=== PATIENT | male | born 1965 | race Caucasian/White ===

== ENCOUNTER → 2017-09-17 10:47 | Outpatient (CLI) | payer MEDICARE, SELFPAY ==
--- NOTE | 2017-09-17 10:55 | DI.REPORT_ITS ---
SYMPTOM/DIAGNOSIS: LT HIP PAIN LEFT HIP AND PELVIS: Three views. Comparison CT scan is 05/21/12. There is again seen deformity of the left femoral head. These findings may reflect prior trauma or congenital changes. There is also stable deformity of the left iliac bone. There is joint space narrowing and mild subchondral sclerosis of the left hip. Periarticular spurring is also noted consistent with secondary degenerative changes. The right hip is well maintained as are the sacroiliac joints and symphysis pubis. The bones are normally mineralized and intact. IMPRESSION: Chronic changes involving the left hip and left iliac bone. 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
== END ==
PROVIDERS: PCP Family Medicine; Visit Provider Student in an Organized Health Care Education/Training Program
DX: M70.62 Trochanteric bursitis, left hip (principal); M25.552 Pain in left hip; M91.11 Juvenile osteochondrosis of head of femur [Legg-Calve-Perthes], right leg; M91.12 Juvenile osteochondrosis of head of femur [Legg-Calve-Perthes], left leg
CPT/HCPCS: 73502; 99214

== ENCOUNTER 2019-09-06 13:13 | Emergency (ER) | payer MEDICARE, SELFPAY ==
[2019-09-06 13:19] VITALS: BP 170/96; PULSE 76; RESP 16; TEMP 36.4; O2SAT 98
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
[2019-09-06] MEDS: Cephalexin 500 MG CAP PO (14:07)
[2019-09-06] MEDS: Lidocaine 1% Multi-Dose 50 ML VIAL IJ (14:07)
== END 2019-09-06 14:53 | disposition home or self-care (01) ==
PROVIDERS: Emergency Provider Registered Nurse Emergency; PCP Family Medicine
DX: S61.411A Laceration without foreign body of right hand, initial encounter (principal); W26.8XXA Contact with other sharp object(s), not elsewhere classified, initial encounter
CPT/HCPCS: 12001; 90471

== ENCOUNTER 2020-05-03 03:43 | Outpatient (CLI) | payer MEDICARE, SELFPAY ==
[2020-05-03 12:27] LABS: Abs Immature Grans 0.04 10^3/uL (0.0-0.06); Absolute Eosinophil Count 0.01 10^3/uL (0.0-0.7); Absolute Lymphocyte Count 1.99 10^3/uL (1.2-3.4); Absolute Monocyte Count 0.58 10^3/uL (0.1-0.8); Basophils % 0.5; Eosinophils % 0.1; HCT 46.1 % (40.0-50.0); HGB 15.9 g/dL (13.5-17.5); Immature Grans % 0.3; Lymphocytes % 15.5; MCH 30.6 pg (27.0-33.0); MCHC 34.5 % (32.0-36.0); MCV 88.8 fL (80-95); MPV 9.1 fL (8.0-11.0); Monocytes % 4.5; Neutrophils % 79.1; Nucleated RBC 0 %; Platelet Count 337 10^3/uL (130-400); RBC 5.19 10^6/uL (4.36-5.78); RDW 11.6 % (11.8-14.1); RDW-SD 37.4 fL; WBC 12.81 10^3/uL (4.4-10.8)
[2020-05-03 12:32] LABS: Absolute Basophil Count 0.06 10^3/uL (0.0-0.2); Absolute Neutrophil Count 10.13 10^3/uL (1.2-6.7)
[2020-05-03 14:37] LABS: ALT 61 U/L (16-63); AST 21 U/L (15-37); Albumin 4.4 g/dL (3.4-5.0); Alkaline Phosphatase 90 U/L (46-116); Anion Gap 12.6 mmol/L (3-11); BUN 17 mg/dL (7-18); Bilirubin, Total 0.8 mg/dL (0.2-1.0); CO2 25.4 mmol/L (21.0-32.0); CREATININE 0.8 mg/dL (0.70-1.30); Calcium 8.9 mg/dL (8.5-10.1); Calculated LDL 156 mg/dL (<100); Chloride 103 mmol/L (98-107); Cholesterol 222 mg/dL (<200); Glucose 119 mg/dL (74-106); HDL Cholesterol 52 mg/dL (40-60); Sodium 141 mmol/L (136-145); Triglyceride 73 mg/dL (<150)
[2020-05-03 14:53] LABS: C-Reactive Protein 0.32 mg/dL (0.0-0.3)
[2020-05-04 16:16] LABS: TSH (W/Ref FT4) 0.34 uIU/mL (0.36-3.74)
[2020-05-04 16:39] LABS: FREE T4 1.14 ng/dL (0.76-1.46)
== END 2020-05-03 03:44 | disposition home or self-care (01) ==
LOC: LBO 03:43
PROVIDERS: PCP Family Medicine; Visit Provider Family Medicine
DX: I10 Essential (primary) hypertension (principal); R59.1 Generalized enlarged lymph nodes; G90.513 Complex regional pain syndrome I of upper limb, bilateral; E66.9 Obesity, unspecified
CPT/HCPCS: 36415; 80053; 80061; 84439; 84443; 85025; 86140

== ENCOUNTER 2020-05-14 02:49 | Outpatient (CLI) | payer MEDICARE, SELFPAY ==
[2020-05-14 12:40] LABS: Abs Immature Grans 0.05 10^3/uL (0.0-0.06); Absolute Basophil Count 0.12 10^3/uL (0.0-0.2); Absolute Eosinophil Count 0.16 10^3/uL (0.0-0.7); Absolute Lymphocyte Count 3.33 10^3/uL (1.2-3.4); Absolute Monocyte Count 0.77 10^3/uL (0.1-0.8); Absolute Neutrophil Count 4.47 10^3/uL (1.2-6.7); Basophils % 1.3; Eosinophils % 1.8; HCT 48.6 % (40.0-50.0); HGB 16.4 g/dL (13.5-17.5); Immature Grans % 0.6; Lymphocytes % 37.4; MCH 30.8 pg (27.0-33.0); MCHC 33.7 % (32.0-36.0); MCV 91.2 fL (80-95); Monocytes % 8.7; Neutrophils % 50.2; Nucleated RBC 0 %; Platelet Count 298 10^3/uL (130-400); RBC 5.33 10^6/uL (4.36-5.78); RDW 12.1 % (11.8-14.1); RDW-SD 40.2 fL
[2020-05-14 13:54] LABS: TSH (W/Ref FT4) 1.25 uIU/mL (0.36-3.74)
[2020-05-17 10:05] LABS: C4 Complement 38 mg/dL (13-39)
== END 2020-05-14 02:50 | disposition home or self-care (01) ==
LOC: LBO 02:49
PROVIDERS: PCP Family Medicine; Visit Provider Family Medicine
DX: I10 Essential (primary) hypertension (principal); R59.0 Localized enlarged lymph nodes; R61 Generalized hyperhidrosis; T78.3XXA Angioneurotic edema, initial encounter
CPT/HCPCS: 36415; 84443; 85025; 86160

== ENCOUNTER → 2020-06-01 01:01 | Outpatient (CLI) | payer MEDICARE, SELFPAY ==
--- NOTE | 2020-06-01 | DI.CT_ITS ---
EXAM: CT NECK W CLINICAL HISTORY: ANGIOEDEMA OF NECK AND PHARYNX, ? CA, T78.3XXA TECHNIQUE: COMPARISON: No exams were available for comparison FINDINGS: CT examination cervical region was performed with intravenous infusion of 100 cc of Visipaque 320. Images obtained through the lung apices are unremarkable. A aortic arch and major vasculature appear s intact. The visualized facial and orbital structures and intracranial contents appear intact. The re is no cervical adenopathy. The salivary glands are unremarkable. There is apparent thickening of the love of the hypopharynx. The glottis is closed and is difficult to evaluate. There is asymmetry of the piriform sinuses with collapsed left piriform sinus. The fi ndings as described are nonspecific and could represent deglutition or edema in the patient with repo rted angioedema of the pharynx. However the possibility of mucosal lesion is not excluded on the bas is of this examination. Direct laryngoscopy suggested for further evaluation. IMPRESSION: Questionable findings suspicious for wall thickening of hypopharynx and abnormal laryngeal findings a s described above, additional evaluation with direct laryngoscopy suggested to exclude neoplastic pro cess.. RADIATION DOSE DELIVERED: 520.62mGy.cm Total DLP RADIATION OPTIMIZATION: All CT scans at this facility use at least one of these dose optimization te chniques: automated exposure control; mA and/or kV adjustment per patient size (includes targeted exa ms where dose is matched to clinical indication); or iterative reconstruction.
[2020-06-01 09:07] LABS: CREATININE 0.9 mg/dL (0.70-1.30)
[2020-06-01] MEDS: Normal Saline - Diluent 50 ML VIAL IV (10:37)
== END ==
PROVIDERS: PCP Family Medicine; Visit Provider Family Medicine
DX: T78.3XXA Angioneurotic edema, initial encounter (principal); J39.2 Other diseases of pharynx; J38.7 Other diseases of larynx
CPT/HCPCS: 70491; 82565

== ENCOUNTER 2022-05-03 03:29 | Outpatient (CLI) | payer MEDICARE, SELFPAY ==
[2022-05-03 07:49] LABS: ALT 29 U/L (16-63); AST 12 U/L (15-37); Alkaline Phosphatase 90 U/L (46-116); BUN 21 mg/dL (7-18); Bilirubin, Total 0.9 mg/dL (0.2-1.0); CREATININE 1.1 mg/dL (0.70-1.30); Calcium 9.3 mg/dL (8.5-10.1); Calculated LDL 123 mg/dL (<100); Chloride 103 mmol/L (98-107); Cholesterol 189 mg/dL (<200); Glucose 113 mg/dL (74-106); HDL Cholesterol 51 mg/dL (40-60); Potassium 3.7 mmol/L (3.5-5.1); Sodium 140 mmol/L (136-145); Total Protein 7.9 g/dL (6.4-8.2); Triglyceride 79 mg/dL (<150)
== END 2022-05-03 03:30 | disposition home or self-care (01) ==
LOC: LBO 03:29
PROVIDERS: PCP Family Medicine; Visit Provider Family Medicine
DX: I10 Essential (primary) hypertension (principal); R73.01 Impaired fasting glucose; R79.89 Other specified abnormal findings of blood chemistry
CPT/HCPCS: 36415; 80053; 80061

== ENCOUNTER → 2022-05-23 10:34 | Outpatient (BNVA) | payer MEDICARE, SELFPAY | PROVIDERS: PCP Family Medicine; Referring Provider Family Medicine; Visit Provider Surgery | DX: K40.90 Unilateral inguinal hernia, without obstruction or gangrene, not specified as recurrent (principal); G90.513 Complex regional pain syndrome I of upper limb, bilateral; I10 Essential (primary) hypertension | CPT/HCPCS: 99202; 99214 ==

== ENCOUNTER 2022-05-31 08:37 | Day surgery (SDC) | payer MEDICARE, SELFPAY ==
[2022-05-31] VITALS (8 sets, daily range): BP systolic 99–167; BP diastolic 55–96; PULSE 54–81; RESP 15–19; TEMP 36.1–36.7; O2SAT 94–100
--- NOTE | 2022-05-31 06:59 | ROE_ITS ---
Date of service: 05/31/22 Time of Service: 10:57 Operative Note Operative Note DATE OF PROCEDURE: 05/31/22 PRE-OP DIAGNOSIS: Right inguinal hernia POST-OP DIAGNOSIS: other (direct and indirect right inguinal hernia, skin tag) PROCEDURE: Right inguinal hernia repair with mesh Skin tag removal on pubis SURGEON: Sravanthi Rosales CAREER RESOURCE TECHNICIAN: Jenni Bravo ANESTHESIA TYPE: Local By Surgeon, General LMA/ETT and Primary Nerve Block Refer to Anesthesia Record ESTIMATED BLOOD LOSS: 3 PATHOLOGY: none sent COMPLICATIONS: None Patient was transported to: PACU Patient's condition: stable Implants: PERFIX: REF- [id number] 2026-11-09 Indications: Mr. Castrejon is a very pleasant 57-year-old gentleman with a right inguinal hernia which is causing him a lot of discomfort especially when standing for long periods of time.? He does have a left inguinal hernia repair x2.? He does not have a history of cardiac issues.? He has no chronic cough or shortness of breath.? We discussed hernia repair with mesh including a TAP block.? Risks, benefits and complications have been reviewed. Complications include but are not limited to bleeding, infection, injury to vas, vessels and nerves, injury to bowel, recurrence (3-5%), chronic pain and adverse reaction to medications. Questions were entertained and answered to their satisfaction and they wished to proceed. Findings: MOderate size indirect hernia and large direct hernia Small cord lipoma Procedure Description: After informed concent was obtained the patient was taken to the operating room and placed in a supine position. Monitors and SCDs were applied and a timeout was done. The patient's name, date of , procedure type, procedure site, allergies to medications, preoperative antibiotic, and DVT prophylaxis were all reviewed. Fire risk was assessed. Next anesthesia did a tap block on the right side under ultrasound guidance. Please see their separate dictation. Once anesthesia was done the abdomen was prepped and draped in a sterile surgical fashion. 0.25% Bupivocaine was injected into the dermis in the right lower quadrant. An incision was made with a 10 blade in the right lower quadrant. Dissection was done with cautery through the subcutaneous tissues and Thierry's fascia down to the external oblique fascia. The external ring was identified and the external oblique fascia was opened sharply through the external ring. The cut fascia was grasped with hemostats, the cord structures were identified and a Fina drain was placed around them. The ilioinguinal nerve was identified and cut. The cremasteric muscle was dissected away from the cord structures using both cautery and blunt dissection. A small lipoma was identified on the cord removed from the cord structures using blunt dissection. A moderate indirect hernia defect was identified and a L plug was placed into the indirect defect and secured with 2-0 proline. A flat piece of mesh was then attached to the lacunar ligament using a 2-0 Prolene double armed suture. The mesh was secured laterally and medially with a 2-0 Prolene, with a running suture. The tails of the mesh were wrapped around the cord structures effectively cinching down the internal ring. Once the mesh was secured the tissues were irrigated with some normal saline. No bleeding was identified. The external oblique fascia was reapproximated using 2-0 Vicryl running suture. The Thierry's fascia was reapproximated using interrupted 3-0 Vicryl. The dermis was reapproximated with a running 4-0 Monocryl. Local anesthetic was injected into the dermis at the site of the skin tag. The skin tag was then removed with a 10 blade. The area was cauterized. The skin was cleaned and dried and dermabond was applied to the inguinal incision. The patient was woken up and taken back to recovery in stable condition. There were no immediate complications. Sponge, instrument and needle counts were correct at the end of the case x2.
--- NOTE | 2022-05-31 07:01 | W.PM.DSUDISC ---
Date of service: 05/31/22 Time of Service: 12:36 Discharge Plan Disposition Patient Disposition: Home Condition: Stable Discharge Details Reason For Visit: [facility] Attending Provider: Sravanthi Rosales Primary Care Provider: Colby Butler Home Meds and New Rx's Prescriptions: Continued ascorbic acid (vitamin C) 500 mg capsule 500 mg PO DAILY apple cider vinegar 600 mg capsule 600 mg PO DAILY bupropion HCl 75 mg tablet 75 mg PO BID Qty: 60 0RF hydrochlorothiazide 12.5 mg tablet 12.5 mg PO DAILY Qty: 90 3RF multivitamin Tablet 1 tab PO DAILY oxycodone 10 mg tablet 10 mg PO BID MDD 20 mg Qty: 56 0RF oxycodone 10 mg tablet 10 mg PO TID MDD 30 mg PRN (Reason: pain) Qty: 84 0RF oxycodone 10 mg tablet 10 mg PO BID MDD 20 mg Qty: 56 0RF Claritin-D 24 Hour 1 EACH tablet extended release 24 hr 1 ea PO PRN sildenafil 50 mg tablet 50 mg PO DAILY PRN (Reason: sexual activity) Qty: 30 6RF Rx Instructions: administer 30 minutes to 4 hours before activity Discharge Instructions Instructions: Open Herniorrhaphy (DC) Additional Instructions: Activity at Home after surgery: 1. Make sure you walk outside at least 4 times per day 2. You should be able to climb a flight of stairs 3. No driving while in pain or taking pain medications 4. No strenuous activity or heavy lifting for 4 weeks (open surgery) Diet, Nutrition, & wound healin. Avoid alcohol until after you are recovered from your surgery 2. Make sure to eat plenty of lean protein (meat, fish, eggs, cottage cheese, beans) 3. Eat a variety of fruits and vegetables. Eat plenty of high fiber foods to avoid constipation. 4. Drink plenty of liquids to stay hydrated and avoid constipation Pain Medications: 1. Tylenol 650mg every 6 hours as needed and Ibuprofen 600 mg every 6 hours as needed. You may alternate between the 2 medications every 3 hours 2. If a narcotic has been prescribed take as directed only for breakthrough pain For Constipation: 1. Take Milk of Magnesia or MiraLax as needed for constipation Other: 1. You may shower daily. Do not scrub the incisions 2. Do not soak the incisions for 1 week 3. You may alternate ice and heat as needed for pain and swelling Wound Care: 1. Keep the incisions clean and dry Please call our office if you develop: 1. Fevers >101.5 2. Nausea or Vomiting 3. Worsening pain 4. Redness and thick discharge from the wounds If after hours please call the Hospital at and ask to speak to the on-call surgeon Referrals: Sravanthi Rosales MD [ [facility] STAFF PHYSICIAN] - 06/06/22 10:00 am Activity:: as above Shower/Bathe:: 24 hours Diet:: As Tolerated Discharge Orders Discharge Orders: Discharge Order (Routine); Ordered 05/31/22 Ordered By: Sravanthi Rosales
[2022-05-31] MEDS: Lactated Ringers 1,000 ML 80 ML IV (09:05)
[2022-05-31] MEDS: Celecoxib 200 MG CAP PO (09:09)
[2022-05-31] MEDS: Acetaminophen 500 MG TAB 1000 MG PO (09:09)
[2022-05-31] MEDS: Gabapentin 300 MG CAP 600 MG PO (09:09)
--- NOTE | 2022-05-31 09:09 | ANES.PREOP_ITS ---
General Info Date of Service Date Performed: 05/31/22 Height: 5 ft 9 in Weight: 5000 g Body Mass Index (BMI): 1.6 Surgical Procedure: Operation Date: 05/31/22 10:10 Proposed Procedure Side Surgeon p Herniorrhaphy Inguinal w/Mesh Right Sravanthi Rosales MD Meds Allergies and Home Medications Allergies Allergy/AdvReac Type Severity Reaction Status Date / Time losartan Allergy Severe angioedema Verified 05/30/22 10:07 gluten Allergy Intermediate Rash Verified 05/30/22 10:07 amitriptyline AdvReac Intermediate sedation Verified 05/30/22 10:07 lisinopril AdvReac Mild Cough Verified 05/30/22 10:07 ether AdvReac Nausea Verified 05/30/22 10:07 flu vaccine AdvReac Intermediate Other (See Uncoded 05/30/22 10:07 Comment) lactose intol AdvReac Intermediate vomiting, Uncoded 05/30/22 10:07 diarrhea Home Medication Medication Instructions Recorded loratadine-pseudoephedrine ER 10 1 ea PO PRN 03/27/17 mg-240 mg tablet,extended [id number] (Claritin-D 24 Hour) apple cider vinegar 600 mg capsule 600 mg PO DAILY 04/23/20 ascorbic acid (vitamin C) 500 mg 500 mg PO DAILY 04/23/20 capsule hydrochlorothiazide 12.5 mg tablet 12.5 mg PO DAILY #90 tabs 07/08/21 multivitamin 1 tab PO DAILY 09/30/21 sildenafil 50 mg tablet 50 mg PO DAILY PRN sexual activity 12/19/21 #30 tabs oxycodone 10 mg tablet 10 mg PO BID #56 tabs 03/16/22 oxycodone 10 mg tablet 10 mg PO BID #56 tabs 03/16/22 oxycodone 10 mg tablet 10 mg PO TID PRN pain #84 tabs 03/16/22 bupropion HCl 75 mg tablet 75 mg PO BID #60 tabs 05/16/22 Current Visit Medications: Current Medications Generic Name Dose Route Start Last Admin Trade Name Freq PRN Reason Stop Dose Admin Acetaminophen 1,000 mg 05/31/22 06:00 Acetaminophen 500 Mg Tab PO 05/31/22 23:59 PREOP THU Celecoxib 200 mg 05/31/22 06:00 Celecoxib 200 Mg Cap PO 05/31/22 23:59 PREOP THU Gabapentin 600 mg 05/31/22 06:00 Gabapentin 300 Mg Cap PO 05/31/22 23:59 PREOP THU Ringer's Solution 1,000 mls @ 80 mls/hr 05/31/22 06:00 IV 06/11/22 23:59 INFUSION THU Cefazolin Sodium/Dextrose 2 gm in 50 mls @ 100 mls/hr 05/31/22 06:00 Ancef Duplex IVPB 05/31/22 23:59 PREOP THU Ondansetron HCl 4 mg/ Sodium 52 mls @ 200 mls/hr 05/31/22 07:02 Chloride IVPB Q6H PRN PRN IV Miscellaneous Supplies 1 each 05/31/22 06:00 Iv Access IV 06/11/22 23:59 DIRECTED THU Sodium Chloride 0 ml 05/31/22 06:00 Normal Saline Flush 10 Ml Syr IV 06/11/22 23:59 PRN PRN Sodium Chloride 0 ml 05/31/22 06:00 Normal Saline 10 Ml Vial IJ 06/11/22 23:59 DIRECTED PRN Sterile Water 0 ml 05/31/22 06:00 Water,Injection,Sterile 10 Ml Vial IJ 06/11/22 23:59 DIRECTED PRN Tramadol HCl 50 mg 05/31/22 07:02 Tramadol 50 Mg Tab PO Q6H PRN PRN Pain PFSH Active Problems Active Problems: Problem Status Onset Code Right inguinal hernia K40.90 Borderline hyperlipidemia E78.5 Pigmented skin lesion L81.9 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 Impaired glucose tolerance R73.02 Erectile dysfunction N52.9 Essential hypertension I10 Abnormal findings on diagnostic imaging of lung 06/02/12 R91.8 Obstruction of urethra 12/13/12 N36.8 Unilateral inguinal hernia 12/13/10 K40.90 Complex regional pain syndrome affecting both upper arms G90.513 Vitamin D deficiency 04/09/14 E55.9 Trochanteric bursitis, left hip 09/17/17 M70.62 Sciatica 02/12/95 M54.30 Other chronic pain 03/15/07 G89.29 Obesity (BMI 30.0-34.9) 11/13/11 E66.9 Neoplasm of unspecified nature of bone, soft tissue, 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 states he had a rx to ether Surgical History Surgical History Biopsy, Soft Tissue (02/09/16) R lower lip Dr Rogers Colonoscopy - MAC (02/29/16) [facility] of inguinal [facility]nia ([facility]/01/12[facility] (open then laparoscopic) Hernia repair with Dr berman 07/03/2012 Total replacement of hip HIP reconstruction for diane-renay perthes. urethrotomy (07/03/12) 4 cm stricture, Dr Paz urethrotomy remote (02/12/78) ? Dr Forman, [facility] Tobacco Smoking/Tobacco Use Status: Former Tobacco Use Passive smoking exposure: No Alcohol Alcohol Intake: current Alcohol intake frequency: a few times a month Substance Use Substance use: Daily Substance use type: marijuana Vital Signs and Lab Results Vital Signs Most Recent Vital Signs in EMR: Most Recent Vital Signs Temp Pulse Resp BP Pulse Ox 36.1 C L 81 16 167/96 H 97 05/31/22 08:54 05/31/22 08:54 05/31/22 08:54 05/31/22 08:54 05/31/22 08:54 Lab Results Blood Type / Crossmatch: No Data to Display Complete Blood Count: No Data to Display Complete Metabolic Panel: Sodium 140 mmol/L (136-145) 05/03/22 07:17 Potassium 3.7 mmol/L (3.5-5.1) 05/03/22 07:17 Chloride 103 mmol/L (98-107) 05/03/22 07:17 Carbon Dioxide 30.0 mmol/L (21.0-32.0) 05/03/22 07:17 BUN 21 mg/dL (7-18) H 05/03/22 07:17 Creatinine 1.1 mg/dL (0.70-1.30) 05/03/22 07:17 Est GFR (CKD-EPI 2020) 78.30 (mL/min/1.73m2) 05/03/22 07:17 Calcium 9.3 mg/dL (8.5-10.1) 05/03/22 07:17 Albumin 4.0 g/dL (3.4-5.0) 05/03/22 07:17 Glucose 113 mg/dL (74-106) H 05/03/22 07:17 Liver Function Panel: Alanine Aminotransferase (ALT/SGPT) 29 U/L (16-63) 05/03/22 07: 17 Aspartate Amino Transf (AST/SGOT) 12 U/L (15-37) L 05/03/22 07: 17 Coagulation Panel: No Data to Display Cardiac Panel: No Data to Display Arterial Blood Gas: No Data to Display Venous Blood Gas: No Data to Display Pancreas Panel: No Data to Display Thyroid Panel: No Data to Display Infectious Disease: No Data to Display Blood Cultures: No Data to Display Toxicology Panel: No Data to Display Anesthesia Assessment and Plan Anesthesia History Personal History: Other Family History: No Family History of Anesthesia Complications Exercise Tolerance Exercise Tolerance: Metabolic Equivalents>4 Pertinent Negatives Pertinent Negatives: No Symptoms of GERD (med controlled) Cardiac & Pulmonary Exam Cardiac Exam: Normal S1/S2 Heart Sounds Pulmonary Exam: Wheezing Present (right upper wheeze. cleared with cough) Implantable Cardiac Device Does patient have a Pacemaker or an ICD?: No Airway Exam Known Difficult Airway: No Mallampati Class: 2 Mouth Opening: Normal (> 3cm) Thyromental Distance: Greater than 3 cm Neck Range of Motion: Full ROM Neck Circumference: Normal Teeth Condition: Normal Dentition ASA Classification ASA Score: ASA 2 Emergency Case?: No NPO Status NPO Status: NPO Clears >2 hours, Solids >8 hours Anesthesia Plan Resuscitation Status: Full Code Anesthesia Technique: General Anesthesia Airway Planned: LMA Pain Management: Surgeon and patient request nerve block (right tap. ) Monitors Used: Standard Monitors Preoperative Comments:: Pt agrees to tap block.
[2022-05-31] MEDS: ceFAZolin 2 GM/50 ML BAG IVPB (09:41)
--- NOTE | 2022-05-31 10:16 | W.ANESNERVE ---
Nerve Block Single Injection Procedure Date and Time Date Performed: 05/31/22 Procedure Start: 09:55 Location Where Procedure Performed Procedure Location: Operating Room Procedure Stop: 10:00 Reason Performed: Postoperative Analgesia Requesting Provider: Sravanthi Rosales Timeout Performed Timeout Performed: Yes Monitoring Used ECG, Blood Pressure, SpO2, ETCO2 and See EMR for corresponding vital signs Sterility Sterility: Hand Hygiene, Surgical Cap, Surgical Mask, Sterile Gloves and Sterile Drape/Sheet Sedation Given During Procedure Sedation Given (Indicate Dose Given): No Sedation given Patient Mental Status Patient Mental Status: Performed under general anesthesia Nerve Block 1st Nerve Block: Laterality: Right Block Type: TAP Unilateral (right ) Ultrasound Image Saved?: Yes Needle / Catheter Used: 100mm SonoPlex II Local Anesthetic Bolus (Indicate Dose Given): Injected in 3-5ml increments after negative blood aspiration and Bupivacaine 0.25% Dose:: 30 ml Additives (Indicate Dose Given): None Ultrasound: Sterile probe cover and gel used Nerve Stimulator: Not Used Paresthesia: None Procedure Tolerated: No Complications Procedure Outcome: Successful Performed By: Javier Rocha Other (not listed above): Eli de los santos
--- NOTE | 2022-05-31 10:58 | W.ANESPOSTOP ---
Postoperative Evaluation Vital Signs Most Recent Imported Vital Signs: Most Recent Vital Signs Temp Pulse Resp BP Pulse Ox 36.1 C L 81 16 167/96 H 97 05/31/22 08:54 05/31/22 08:54 05/31/22 08:54 05/31/22 08:54 05/31/22 08:54 Pain Score Most Recent Pain Score: Most Recent Pain Score Pain Level 6 05/31/22 08:54
--- NOTE | 2022-05-31 11:06 | W.PM.PROGNOT ---
Date of Service Date of service: 05/31/22 Time of Service: 09:00 Assessment and Plan Assessment and plan (1) Right inguinal hernia: Status: Acute Assessment and plan: late entry Risks, benefits and complications were reviwed again. Questions were answered. He understood the risks and complications and wished to proceed. No guarantees were given or implied. (2) Skin tag: Status: Acute Subjective Subjective Interval history since last seen: Patient seen in [facility] the day of surgery. He is nervous but otherwise doing well. Questions were answered regarding postoperative course. He also has a skin tag on his pubis which he would like tyo have it removed. This was added to his consent. Exam Resp Effort & Inspection: normal respiratory effort Auscultation: clear to auscultation bilaterally Cardio Rate: regular rate Rhythm: regular rhythm GI Other: skin tag on the right side of the pubis Objective Last Vital Signs Temp 97.0 F L 05/31/22 08:54 Pulse 81 05/31/22 08:54 Resp 16 05/31/22 08:54 BP 167/96 H 05/31/22 08:54 Pulse Ox 97 05/31/22 08:54 Time Spent with Patient Time Spent with Patient: <25 minutes Time was spent: counseling the patient
[2022-05-31] MEDS: Bupivacaine 0.25% Pres-Free 30 ML VIAL (11:07)
[2022-05-31] MEDS: HYDROmorphone 2 MG/ML SYR IVP (12:17)
--- NOTE | 2022-05-31 12:33 | W.ANESPOSTOP ---
Postoperative Evaluation Date, Time and Location Date Performed: 05/31/22 Time Performed: 12:33 Patient Location: Day Surgery Unit Vital Signs Most Recent Imported Vital Signs: Most Recent Vital Signs Temp Pulse Resp BP Pulse Ox 36.7 C 59 L 16 136/84 100 05/31/22 12:08 05/31/22 12:08 05/31/22 12:08 05/31/22 12:08 05/31/22 12:08 Pain Score Most Recent Pain Score: Most Recent Pain Score Pain Level 6 05/31/22 12:08 Assessment Mental Status: Awake (Alert & Oriented to Patient Baseline) Airway and Respiratory Function: Patent airway with normal (patient baseline) respiratory exam Cardiovascular Function: Hemodynamically Stable Hydration Status: Adequately Hydrated Nausea & Vomiting: No Nausea or Vomiting Pain: Pain is Moderate or Severe Postoperative Pain Management: Pain being addressed with medication (Currently 4/10) Peripheral Nerve Block: Regional nerve block not resolved at time of post operative discharge
--- NOTE | 2022-05-31 12:37 | W.PM.PROGNOT ---
Date of Service Date of service: 05/31/22 Time of Service: 12:37 Assessment and Plan Assessment and plan (1) S/P inguinal hernia repair using synthetic patch: Assessment and plan: Delgado is a few hours out from his hernia surgery. He is doing well. He has some discomfort. Discussed signs and symptoms of infection Subjective Subjective Interval history since last seen: Delgado is doing well. I am seing it postoperatively in SDS. He is having some pain. Will give him Oxycodon 10 mg which is what he takes at home for chronic pain. Otherwise he feels well Exam GI Inspection: incision (c/d/i) Palpation: tender (appropriately tender around the incision) Objective Last Vital Signs Temp 98.1 F 05/31/22 12:08 Pulse 59 L 05/31/22 12:08 Resp 16 05/31/22 12:08 BP 136/84 05/31/22 12:08 Pulse Ox 100 05/31/22 12:08 Time Spent with Patient Time Spent with Patient: <25 minutes Time was spent: counseling the patient
[2022-05-31] MEDS: oxyCODONE 5 MG TAB 10 MG PO (12:45)
== END 2022-05-31 13:27 | disposition home or self-care (01) ==
PROVIDERS: PCP Family Medicine; Visit Provider Surgery
DX: K40.90 Unilateral inguinal hernia, without obstruction or gangrene, not specified as recurrent (principal); D17.6 Benign lipomatous neoplasm of spermatic cord
CPT/HCPCS: 49505; 55520; 76942; C1781; J0690; J1100; J1170; J1885; J2405; J2704

== ENCOUNTER → 2022-06-06 09:57 | Outpatient (BNVA) | payer MEDICARE, SELFPAY | PROVIDERS: PCP Family Medicine; Referring Provider Family Medicine; Visit Provider Surgery | DX: Z48.817 Encounter for surgical aftercare following surgery on the skin and subcutaneous tissue (principal) ==

== ENCOUNTER → 2022-06-14 12:56 | Outpatient (BNVA) | payer MEDICARE, SELFPAY | PROVIDERS: PCP Family Medicine; Referring Provider Family Medicine; Visit Provider Surgery | DX: Z48.817 Encounter for surgical aftercare following surgery on the skin and subcutaneous tissue (principal); G89.18 Other acute postprocedural pain ==

== ENCOUNTER 2022-07-13 03:34 | Outpatient (CLI) | payer MEDICARE, SELFPAY ==
--- NOTE | 2022-07-13 08:30 | DI.RAD_ITS ---
Exam(s) XR SHOULDER RT COMPLETE 2+V EXAM: XR SHOULDER RT COMPLETE 2+V CLINICAL HISTORY: Likely arthritis,RT SHOULDER PAIN, M25.511. TECHNIQUE: 2D digital imaging was performed. COMPARISON: No exams were available for comparison FINDINGS: Five views No evidence acute fracture or dislocation or joint space narrowing. No calcifications in the subacro mial space. There is a 3 x 2 millimeter calcific density immediately subjacent to the inferior aspec t of the osseous glenoid. There is not have appearance of an obvious bony [place] lesion. Other con sideration would be for loose body in the inferior recess at this level. There are mild degenerative changes in the AC joint. Intra-articular calcifications seen in the supe rior aspect of the AC joint. No ominous osseous lesions. Bone density normal. IMPRESSION: As above. DATA REPOSITORY: RADIATION DOSE DELIVERED:
== END 2022-07-13 03:54 ==
LOC: DI 03:35
PROVIDERS: PCP Family Medicine; Visit Provider Family Medicine
DX: M19.012 Primary osteoarthritis, left shoulder
CPT/HCPCS: 73030

== ENCOUNTER → 2022-11-14 08:58 | Outpatient (BNVA) | payer MEDICARE, SELFPAY | PROVIDERS: PCP Family Medicine; Referring Provider Family Medicine; Visit Provider Student in an Organized Health Care Education/Training Program | DX: M75.101 Unspecified rotator cuff tear or rupture of right shoulder, not specified as traumatic (principal); G90.513 Complex regional pain syndrome I of upper limb, bilateral | CPT/HCPCS: 99203; 99213 ==

== ENCOUNTER → 2022-12-05 00:49 | Outpatient (CLI) | payer MEDICARE, SELFPAY ==
--- NOTE | 2022-12-05 07:00 | DI.MRI_ITS ---
Exam(s) MR UPPER JOINT RT WO EXAM: MR UPPER JOINT RT WO CLINICAL HISTORY: PAIN,RT ROTATOR CUFF TEAR,M75.101. TECHNIQUE: Multiplanar multisequence MRI was performed. COMPARISON: 13 July 2022 plain film FINDINGS: BONES: There is no fracture or contusion pattern. JOINTS:The acromioclavicular joint shows some inferior spurring and a small amount of fluid. The gle nohumeral joint shows a moderate amount of fluid. Fluid ext extends into subacromial space and subcoracoid bursa. Fluid extends along the infraspinatu s tendon. TENDONS: Supraspinatus: On full-thickness tear with retraction to the level of the AC joint. Infraspinatus: Fluid extends along the infraspinatus tendon. No focal tear is visible. Subscapularis: Thickening but no visible tear. Teres [place]: Unremarkable. Biceps and [place]: Unremarkable. MUSCLES: Mild supraspinatus muscle atrophy. GLENOID LABRUM: Question of small tear at anterosuperior corner versus labral recess with fluid. SOFT TISSUES: Unremarkable. IMPRESSION: Full-thickness tear of with retraction of the supraspinatus tendon. Joint effusion. Subscapularis tendinosis. Question small tear anterior superior glenoid labrum versus recess. DATA REPOSITORY:
== END ==
PROVIDERS: PCP Family Medicine; Visit Provider Student in an Organized Health Care Education/Training Program
DX: M75.121 Complete rotator cuff tear or rupture of right shoulder, not specified as traumatic (principal)
CPT/HCPCS: 73221

== ENCOUNTER → 2022-12-12 09:35 | Outpatient (BNVA) | payer MEDICARE, SELFPAY | PROVIDERS: PCP Family Medicine; Referring Provider Family Medicine; Visit Provider Student in an Organized Health Care Education/Training Program | DX: M75.101 Unspecified rotator cuff tear or rupture of right shoulder, not specified as traumatic (principal); S43.431A Superior glenoid labrum lesion of right shoulder, initial encounter; X58.XXXA Exposure to other specified factors, initial encounter | CPT/HCPCS: 99214 ==

== ENCOUNTER 2022-12-29 09:41 | Day surgery (SDC) | payer MEDICARE, SELFPAY ==
[2022-12-29] VITALS (11 sets, daily range): BP systolic 134–164; BP diastolic 61–94; PULSE 63–87; RESP 9–23; TEMP 35.8–37; O2SAT 95–100; BMI 29.9
--- NOTE | 2022-12-29 07:29 | W.PM.DSUDISC ---
Date of service: 12/29/22 Time of Service: 16:00 Discharge Plan Disposition Patient Disposition: Home Condition: Stable Discharge Details Attending Provider: Rd Torre Primary Care Provider: Colby Butler Home Meds and New Rx's Prescriptions: New naproxen 250 mg tablet 250 - 500 mg PO BID PRNQty: 40 0RF Rx Instructions: take with a meal aspirin 81 mg tablet,delayed release (DR/EC) 81 mg PO DAILY 7 Days Qty: 7 0RF Continued ascorbic acid (vitamin C) 500 mg capsule 500 mg PO DAILY apple cider vinegar 600 mg capsule 600 mg PO DAILY cholecalciferol (vitamin D3) 10 mcg (400 unit) capsule 10 mcg PO .Every other day hydrochlorothiazide 12.5 mg tablet 12.5 mg PO DAILY Qty: 90 3RF oxycodone 10 mg tablet 10 mg PO TID MDD 30 mg Qty: 84 0RF oxycodone 10 mg tablet 10 mg PO TID MDD 30 mg Qty: 84 0RF oxycodone 10 mg tablet 10 mg PO TID MDD 30 mg PRN (Reason: pain) Qty: 84 0RF oxycodone 5 mg tablet 5 mg PO BID MDD 40 mg PRN (Reason: pain) Qty: 6 0RF Rx Instructions: Temporary post-op pain management in addition to his normal supply of 10 mg oxycodone multivitamin Tablet 1 tab PO DAILY bupropion HCl 150 mg tablet sustained-release 12 hr 150 mg PO BID Qty: 180 1RF cyanocobalamin (vitamin B-12) 1,000 mcg capsule 1,000 mcg PO DAILY Claritin-D 24 Hour 1 EACH tablet extended release 24 hr 1 ea PO PRN sildenafil 50 mg tablet 50 mg PO DAILY PRN (Reason: sexual activity) Qty: 30 6RF Rx Instructions: administer 30 minutes to 4 hours before activity lidocaine 5 % adhesive patch,medicated 1 patch topical DAILY Qty: 15 0RF Rx Instructions: leave on most painful area for up to 12 hrs Discharge Instructions Additional Instructions: Surgery: Right shoulder arthroscopy with allograft superior capsular reconstruction, rotator cuff repair, biceps tenodesis, extensive debridement, and subacromial decompression. Activity: For 6 weeks, you should keep your arm at your side in a neutral position at all times except for physical therapy. Do not try to lift or raise your arm using your own muscles. You should use the sling whenever you are out of the house. You may have to adjust the abduction pillow or remove it for comfort. At home it is best to remove the sling and rest the arm on a pillow at your side or support the operative side with your other hand. You may allow the arm to dangle at your side. A physical therapy prescription will be sent electronically to begin in about 3 weeks. CONSERVATIVE protocol. Prescriptions: Aspirin 81 mg take 1 daily to prevent a blood clot for 7 days Naproxen 250 mg take 1-2 every 12 hours with a meal as needed for moderate pain Oxycodone 5 mg take 1-2 every 4-6 hours as needed for severe pain You may use [id number] Tylenol (acetaminophen) as needed for mild pain. These pain medications may be taken all at once or in different combinations as needed. Also, recommend Colace (docusate) as a stool softener as surgery and pain medicine cause constipation. You may try [id number] diphenhydramine (Benadryl) 25-50 mg nightly as a sleep aid Dressings: Remove shoulder bandage after 3 days. Leave the sticky Steri-Strips in place until they fall off or remove them after you shower. Cover the incisions with Band-Aids or leave them open to air. You may shower after 5 days. Follow-up: 10-[address] Torre You may take off the leg compression stockings this evening at home. You may also leave them on a few days longer if you have a history of leg swelling or edema. Let us know right away if you develop any redness, drainage, fevers, chest pain, or trouble breathing. Do not drink alcohol or drive for at least 24 hours after anesthesia. Please call the office during business hours with any questions or concerns. Discharge Orders Discharge Orders: Discharge Order (Routine); Ordered 12/29/22 Ordered By: Rd Torre DS: Diagnosis Discharge Diagnosis (1) Rotator cuff tear, right: Status: Acute (2) SLAP lesion of right shoulder: Status: Acute (3) Chondromalacia of right shoulder: Status: Acute
--- NOTE | 2022-12-29 07:31 | ROE_ITS ---
Date of service: 12/29/22 Time of Service: 13:30 Operative Note Operative Note DATE OF PROCEDURE: 12/29/22 PRE-OP DIAGNOSIS: Right: 1. Rotator cuff tear 2. SLAP tear 3. Glenohumeral chondromalacia 4. Bursitis POST-OP DIAGNOSIS: same PROCEDURE: Right: 1. Rotator cuff repair, CPT# 46518. This involved repair of the infraspinatus teres minor to the posterior aspect of the reconstruction and greater tuberosity 2. Arthroscopic biceps tenodesis, CPT# 88421. This involved arthroscopically suturing and reattaching the long head of the biceps tendon to the proximal humerus at the superior margin of the bicipital groove with a screw at the correct tension. 3. Extensive debridement, CPT# 68335. This involved using arthroscopic hand instruments, power instruments, and radiofrequency instruments to release the long head of the biceps tendon and debride areas of labral tearing, synovitis, and chondromalacia about the central humeral head working within the glenohumeral joint anteriorly, superiorly and posteriorly. 4. Subacromial decompression with partial acromioplasty, CPT# 30858. This involved using arthroscopic power instruments and a radiofrequency wand to complete a bursectomy and smooth the undersurface of the acromion. 5. Arthroscopic superior capsular reconstruction, CPT #69679: This involved dermal allograft reconstruction of deficient superior capsule to maintain glenohumeral stability and prevent superior humeral migration. The pediatric physician assistant was medically required in order to help assist in techniques above, which require positioning the arm, holding the arthroscope, and manipulating multiple instruments and sutures at the same time. This cannot be done without the help of an experienced pediatric physician assistant. SURGEON: Rd Torre CRIMINALIST TECHNICIAN: Yuliana De Luna ANESTHESIA TYPE: General LMA/ETT and Primary Nerve Block Refer to Anesthesia Record ESTIMATED BLOOD LOSS: 10 PATHOLOGY: none sent COMPLICATIONS: None Patient was transported to: PACU Patient's condition: stable Implants: Arthrex: 4.75mm SwiveLocks x 4, 3.9mm Corkscrew anchors x 2 Indications: The patient was diagnosed with the above conditions and appropriately indicated for surgical intervention. Please see complete medical record for details. Findings: Exam under anesthesia: Full range of motion, no instability Glenohumeral joint: Significant synovitis, obvious full-thickness retracted atrophied rotator cuff tear. Intact subscapularis. Intact long head biceps tendon, but significant SLAP tear disruption biceps tendon anchor. Moderate global humeral head and to a lesser extent glenoid chondromalacia. Subacromial space: Completely deficient supraspinatus and majority infraspinatus. Retracted atrophied rotator cuff past the level of the glenoid. Significant bursitis. Irregular soft bone across the exposed greater tuberosity margin. Tear involving the transverse humeral ligament anteriorly at the biceps. Relatively intact teres and possibly some infraspinatus most posteriorly. Procedure Description: In the operating room, general anesthesia was induced. Bilateral shoulders were examined. The patient was positioned in the beachchair position. All bony prominences were well-padded. Preoperative antibiotics were administered. The shoulder was prepped and draped in the usual sterile fashion. The correct patient, procedure, and side of the procedure were all verified prior to incision. Starting through the posterior portal a standard complete diagnostic arthroscopy was performed of the glenohumeral joint including inspection of the long head of the biceps, anterior and superior labrum, subscapularis tendon, supraspinatus and infraspinatus tendons, and axillary recess. The glenoid and humeral head cartilage as well as the posterior labrum were inspected from a superior anterior lateral viewing portal. Significant findings and interventions noted above. Starting through the posterior portal, the arthroscope was directed into the subacromial space. A lateral 50 yard line lateral portal was created. A combination of power instruments and a radiofrequency ablator were used to debride bursitis anteriorly, posteriorly, and laterally as well as expose and smooth bone spurring on the undersurface of the acromion. The coracoacromial ligament was minimally released. The bursectomy was completed viewing laterally and working from posteriorly and the rotator cuff was thoroughly inspected with findings noted above. Working cannulas were established Lynn's anterior and posterior superior lateral and Lynn laterally. An all-arthroscopic suprapectoral biceps tenodesis was performed through an anterior portal using a Loop N Tack method with a SutureTape FiberLink cinched around and through the tendon. The biceps was tenotomized from the labrum and withdrawn out the superior anterolateral cannula for later repair with the medial row reconstruction suture anchor. The deficient rotator cuff was tested and had no excursion mobility or tissue quality for repair medial to lateral. The far most posterior tissue would probably be able to be used to reapposed with a graft and posterior margin greater tuberosity. Percutaneous portals no visor and anterior were used with spinal needles dilators to localize trajectory for the glenoid reconstruction anchors. Superior labrum and glenoid bone prepared to optimize tissue healing. Spear corkscrew guide used anteriorly at the base of the coracoid and then posterior superior glenoid margin placing 2 knotless 3.9 mm corkscrew anchors. The anterior medial row SwiveLock was then placed with the biceps tenodesis anchor with additional suture around and through the biceps tendon for additional fixation and soft tissue anteriorly given the large area of deficiency. The suture anchor was preloaded with FiberTape's. A posterior medial row anchor SwiveLock placed loaded with FiberTape's as well. SCR measuring guide was used to measure dimensions of the defect and on the back table the dermal allograft was prepared. The Lynn cannula was removed and a 12 x 4 passport was inserted. The FiberTape's were brought out laterally passed through the lateral margin of the reconstruction tissue. The knotless glenoid repair sutures were then brought out shuttled horizontal mattress through the glenoid margin of the reconstruction and then shuttled back through their respective anchor eyelet knotless mechanisms. The graft was then delivered into the joint using the back grasper. It deployed nicely and reapposed to the glenoid margin. Glenoid sutures were tensioned. Anterior FiberTape's were tensioned bringing the graft down. The posterior anchor was a knotless SwiveLock and the 5 sutures pulled through the graft. The knotless repair sutures were removed. A scorpion was used to shuttle a FiberLink through an appropriate location over the posterior medial row suture anchor and then used to shuttle the FiberTape's back through the reconstruction graft. These were tensioned down. There is nice fit of the graft through the rotator cuff defect. The arm is rotated a FiberTape from anterior and posterior was then secured to an anterior lateral row SwiveLock anchor, this was repeated for posterior lateral row SwiveLock anchor. Reconstruction was complete with good fixation tissue apposition across the greater tuberosity and at the glenoid. Demonstrated good trampoline effect and the arm could not be delivered up into the acromion anymore. Through the posterior superior lateral portal knotless suture passer was then used to place a [id number] repair suture between the remnant infraspinatus and teres in the central posterior aspect of the reconstruction tissue and secured using SMC arthroscopic knot. Similar technique was then done anteriorly securing the biceps tendon stump to the anterior central portion of the reconstruction for additional tissue given the deficient transverse humeral ligament area. The shoulder was drained of arthroscopic fluid. All portal sites were copiously irrigated. These incisions were closed using 3-0 Monocryl in a buried fashion and then covered with Mastisol, Steri-Strips, Xeroform, dry gauze, and ABDs. The dressings were covered and secured with Medipore tape. The operative extremity was placed into a sling for immobilization. The patient awoke from anesthesia without complication and was transferred to the recovery room in a stable condition.
--- NOTE | 2022-12-29 08:17 | ANES.PREOP_ITS ---
General Info Date of Service Date Performed: 12/29/22 Height: 5 ft 9 in Weight: 92.079 kg Body Mass Index (BMI): 29.9 Surgical Procedure: Operation Date: 12/29/22 12:10 Proposed Procedure Side Surgeon p Shoulder Rotator Cuff Arthroscopic w/Extensive Debridement, Biceps Tenodesis, Subacromial Decompression, Allograft Superior Capsular Reconstruction Right Renato kruse Digna Torre MD Meds Allergies and Home Medications Allergies Allergy/AdvReac Type Severity Reaction Status Date / Time losartan Allergy Severe angioedema Verified 12/29/22 09:56 tramadol Allergy Severe rash Verified 12/29/22 09:57 gluten Allergy Intermediate Rash Verified 12/29/22 09:56 amitriptyline AdvReac Intermediate sedation Verified 12/29/22 09:56 lisinopril AdvReac Mild Cough Verified 12/29/22 09:56 ether AdvReac Nausea Verified 12/29/22 09:56 flu vaccine AdvReac Intermediate Other (See Uncoded 12/29/22 09:56 Comment) lactose intol AdvReac Intermediate vomiting, Uncoded 12/29/22 09:56 diarrhea Home Medication Medication Instructions Recorded loratadine-pseudoephedrine ER 10 1 ea PO PRN 03/27/17 mg-240 mg tablet,extended [id number] (Claritin-D 24 Hour) apple cider vinegar 600 mg capsule 600 mg PO DAILY 04/23/20 ascorbic acid (vitamin C) 500 mg 500 mg PO DAILY 04/23/20 capsule multivitamin 1 tab PO DAILY 09/30/21 sildenafil 50 mg tablet 50 mg PO DAILY PRN sexual activity 12/19/21 #30 tabs cholecalciferol (vitamin D3) 10 10 mcg PO .Every other day 06/13/22 mcg (400 unit) capsule hydrochlorothiazide 12.5 mg tablet 12.5 mg PO DAILY #90 tabs 06/19/22 bupropion HCl 150 mg tablet,12 hr 150 mg PO BID #180 tabs 09/29/22 sustained-release lidocaine 5 % topical patch 1 patch topical DAILY #15 ea 10/17/22 cyanocobalamin (vitamin B-12) 1,000 mcg PO DAILY 12/12/22 1,000 mcg capsule oxycodone 10 mg tablet 10 mg PO TID #84 tabs 12/19/22 oxycodone 10 mg tablet 10 mg PO TID #84 tabs 12/19/22 oxycodone 10 mg tablet 10 mg PO TID PRN pain #84 tabs 12/19/22 oxycodone 5 mg tablet 5 mg PO BID PRN pain #6 tabs 12/19/22 Current Visit Medications: Current Medications Generic Name Dose Route Start Last Admin Trade Name Freq PRN Reason Stop Dose Admin Ringer's Solution 1,000 mls @ 30 mls/hr 12/29/22 06:00 IV 01/27/23 23:59 INFUSION THU Cefazolin Sodium/Dextrose 2 gm in 50 mls @ 100 mls/hr 12/29/22 06:00 Ancef Duplex IVPB 01/27/23 23:59 PREOP THU IV Miscellaneous Supplies 1 each 12/29/22 06:00 Iv Access IV 01/27/23 23:59 DIRECTED THU Oxycodone HCl 0 mg 12/29/22 07:28 Oxycodone 5 Mg Tab PO 01/28/23 07:27 Q3H PRN PRN Pain Sodium Chloride 0 ml 12/29/22 06:00 Normal Saline Flush 10 Ml Syr IV 01/27/23 23:59 PRN PRN Sodium Chloride 0 ml 12/29/22 06:00 Normal Saline 10 Ml Vial IJ 01/27/23 23:59 DIRECTED PRN Sterile Water 0 ml 12/29/22 06:00 Water,Injection,Sterile 10 Ml Vial IJ 01/27/23 23:59 DIRECTED PRN PFSH Active Problems Active Problems: Problem Status Onset Code SLAP lesion of right shoulder S43.431A Rotator cuff tear, right M75.101 Seborrheic keratoses 10/02/22 L82.1 Depression F32.A Postoperative abdominal pain R10.9, G89.18 Skin tag L91.8 Borderline hyperlipidemia E78.5 Pigmented skin lesion L81.9 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 Impaired glucose tolerance R73.02 Erectile dysfunction N52.9 Essential hypertension I10 Abnormal findings on diagnostic imaging of lung 06/02/12 R91.8 Obstruction of urethra 12/13/12 N36.8 Unilateral inguinal hernia 12/13/10 K40.90 Complex regional pain syndrome affecting both upper arms G90.513 Vitamin D deficiency 04/09/14 E55.9 Trochanteric bursitis, left hip 09/17/17 M70.62 Sciatica 02/12/95 M54.30 Other chronic pain 03/15/07 G89.29 Obesity (BMI 30.0-34.9) 11/13/11 E66.9 Neoplasm of unspecified nature of bone, soft tissue, 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 states he had a rx to ether Surgical History Surgical History S/P cryotherapy of skin lesion (10/02/22) Location forehead, right helix, left pentecostalism, vertex scalp (Total #7) - Dr Les Nicole MD @ [facility] [place] S/P right inguinal hernia repair (~05/31/22) S/P inguinal hernia repair using synthetic patch (~05/31/22) urethrotomy remote (02/12/78) ? Dr Forman, [facility] urethrotomy (07/03/12) 4 cm stricture, Dr Paz Total replacement of hip HIP reconstruction for diane-renay perthes. Repair of inguinal hernia (05/01/12) DR KEVIN- [facility] repair x2 (open then laparoscopic) Hernia repair with Dr kevin 07/03/2012 Colonoscopy - MAC (02/29/16) Biopsy, Soft Tissue (02/09/16) R lower lip Dr Rogers Tobacco Smoking/Tobacco Use Status: Former Tobacco Use Passive smoking exposure: No Alcohol Alcohol Intake: current Alcohol intake frequency: a few times a month Substance Use Substance use: Daily Substance use type: marijuana Vital Signs and Lab Results Vital Signs Most Recent Vital Signs in EMR: Temp Pulse Resp BP Pulse Ox 36.6 C 87 16 164/94 H 97 12/29/22 10:07 12/29/22 10:07 12/29/22 10:07 12/29/22 10:07 12/29/22 10:07 Lab Results Blood Type / Crossmatch: No Data to Display Complete Blood Count: No Data to Display Complete Metabolic Panel: No Data to Display Liver Function Panel: No Data to Display Coagulation Panel: No Data to Display Cardiac Panel: No Data to Display Arterial Blood Gas: No Data to Display Venous Blood Gas: No Data to Display Pancreas Panel: No Data to Display Thyroid Panel: No Data to Display Infectious Disease: No Data to Display Blood Cultures: No Data to Display Toxicology Panel: No Data to Display Anesthesia Assessment and Plan Anesthesia History Personal History: Other Family History: No Family History of Anesthesia Complications Exercise Tolerance Exercise Tolerance: Metabolic Equivalents>4 Cardiac & Pulmonary Exam Cardiac Exam: Normal S1/S2 Heart Sounds Pulmonary Exam: Clear Bilateral Breath Sounds Implantable Cardiac Device Does patient have a Pacemaker or an ICD?: No Airway Exam Known Difficult Airway: No Mallampati Class: 2 Mouth Opening: Normal (> 3cm) Thyromental Distance: Greater than 3 cm Neck Range of Motion: Full ROM Neck Circumference: Normal Teeth Condition: Normal Dentition ASA Classification ASA Score: ASA 2 Emergency Case?: No NPO Status NPO Status: NPO Clears >2 hours, Solids >8 hours Anesthesia Plan Resuscitation Status: Full Code Anesthesia Technique: General Anesthesia Airway Planned: Endotracheal Tube Pain Management: Surgeon and patient request nerve block (Rescue brachial plexus block. ) Monitors Used: Standard Monitors Preoperative Comments:: 57 yo male for shoulder scope. Sig PMHx: HTN (HCTZ), depression/adjustment disorder (bupropion), sciatica, neck/back pain. former smoker, occ EtOH, daily cannabis. ? CRPS/chronic pain (30 mg oxycodone/day) Previous Anes: - hernia, LMA 5, no issues. - colo, prop, natural airway, no issues. Does not want nerve block. Had a nerve block at [facility] a long time ago in which they told him that he because of his nerve block. In reviewing [facility] I can't find a record of this. We discussed his pain after the surgery and he agrees that if he is very uncomfortable he would be willing to have a nerve block as a rescue.
[2022-12-29] MEDS: Lactated Ringers 1,000 ML 30 ML IV (10:39)
[2022-12-29] MEDS: ceFAZolin 2 GM/50 ML BAG IVPB (12:52)
[2022-12-29] MEDS: Bupivacaine 0.25% Pres-Free 30 ML VIAL (15:00)
[2022-12-29] MEDS: EPINEPHrine 10 MG/10 ML ML (15:01)
[2022-12-29] MEDS: fentaNYL 100 MCG/2 ML VIAL IVP ×2 (15:47→15:55)
[2022-12-29] MEDS: HYDROmorphone 2 MG/ML SYR IVP ×2 (16:04→16:20)
--- NOTE | 2022-12-29 17:47 | W.ANESPOSTOP ---
Postoperative Evaluation Date, Time and Location Date Performed: 12/29/22 Time Performed: 17:47 Patient Location: Day Surgery Unit Vital Signs Most Recent Imported Vital Signs: Most Recent Vital Signs Temp Pulse Resp BP Pulse Ox 35.8 C L 74 13 158/75 H 99 12/29/22 17:05 12/29/22 17:05 12/29/22 17:05 12/29/22 17:05 12/29/22 17:05 Pain Score Most Recent Pain Score: Most Recent Pain Score Pain Level 5 12/29/22 17:05 Assessment Mental Status: Awake (Alert & Oriented to Patient Baseline) Airway and Respiratory Function: Patent airway with normal (patient baseline) respiratory exam Cardiovascular Function: Hemodynamically Stable Hydration Status: Adequately Hydrated Nausea & Vomiting: No Nausea or Vomiting Pain: Pain is tolerable per patient Peripheral Nerve Block: Patient did not receive a nerve block Postoperative Comments:: Pt. once awake from anesthesia declines nerve block and would just like IV pain medicine. He received 1.5mg Dilaudid and 100mcg fentanyl, pain from 9 to a 5/10. While in [facility], he has been 5/10. When I just saw him, he is 7/10, but just coming from bathroom after some activity. He states he wants to go home despite his pain level as he has lived with chronic pain for years. I discussed safe use of analgesia medications at home and his will be monitoring him. He is CAOx4, and awake at baseline level.
== END 2022-12-29 18:00 | disposition home or self-care (01) ==
LOC: SUR 09:41
PROVIDERS: PCP Family Medicine; Visit Provider Student in an Organized Health Care Education/Training Program
PROC: (CPT 29827; principal; 2022-12-29 12:00)
DX: M75.101 Unspecified rotator cuff tear or rupture of right shoulder, not specified as traumatic (principal); S43.431A Superior glenoid labrum lesion of right shoulder, initial encounter; M94.211 Chondromalacia, right shoulder; X58.XXXA Exposure to other specified factors, initial encounter
CPT/HCPCS: 29806; 29823; 29826; 29827; 29828; J0131; J0690; J1100; J1170; J1885; J2250; J2371; J2405; J3010; J3475

== ENCOUNTER → 2023-01-10 11:06 | Outpatient (BNVA) | payer MEDICARE, SELFPAY | PROVIDERS: PCP Family Medicine; Referring Provider Family Medicine; Visit Provider Student in an Organized Health Care Education/Training Program | DX: Z47.89 Encounter for other orthopedic aftercare (principal); M75.101 Unspecified rotator cuff tear or rupture of right shoulder, not specified as traumatic ==

== ENCOUNTER → 2023-03-07 10:24 | Outpatient (BNVA) | payer MEDICARE, SELFPAY | PROVIDERS: PCP Family Medicine; Referring Provider Family Medicine; Visit Provider Student in an Organized Health Care Education/Training Program | DX: Z47.89 Encounter for other orthopedic aftercare (principal); M75.101 Unspecified rotator cuff tear or rupture of right shoulder, not specified as traumatic ==

== ENCOUNTER 2023-05-09 14:50 | Outpatient (CLI) | payer MEDICARE, SELFPAY ==
--- NOTE | 2023-05-09 09:00 | DI.RAD_ITS ---
Exam(s) XR SHOULDER LT COMPLETE 2+V EXAM: XR SHOULDER LT COMPLETE 2+V CLINICAL HISTORY: shoulder pain. TECHNIQUE: 2D digital imaging was performed. Two views. COMPARISON: MR MR UPPER JOINT RT WO from 12/05/2022 FINDINGS: BONES: No acute fracture is present. No bony destructive lesion is seen. Mild spurring at the tip of the acromion. JOINTS: No dislocation present. AC joint shows mild spurring. Glenohumeral joint space is maintaine d. SOFT TISSUE: Normal. IMPRESSION: Mild degenerative changes of the AC joint. DATA REPOSITORY: RADIATION DOSE DELIVERED:
== END 2023-05-09 14:51 | disposition home or self-care (01) ==
LOC: DIORS 14:50
PROVIDERS: PCP Family Medicine; Visit Provider Student in an Organized Health Care Education/Training Program
DX: M75.102 Unspecified rotator cuff tear or rupture of left shoulder, not specified as traumatic; M75.101 Unspecified rotator cuff tear or rupture of right shoulder, not specified as traumatic
CPT/HCPCS: 99213; 73030

== ENCOUNTER → 2023-05-29 01:17 | Outpatient (CLI) | payer MEDICARE, SELFPAY ==
--- NOTE | 2023-05-29 07:45 | DI.MRI_ITS ---
Exam(s) MR UPPER JOINT LT WO EXAM: MR UPPER JOINT LT WO CLINICAL HISTORY: ? rotator cuff TEAR,lt shoulder pain,m25.512. TECHNIQUE: Multiplanar multisequence MRI was performed. COMPARISON: Plain films 09 May 2023 FINDINGS: Exam is mildly limited by motion and body habitus. BONES: There is no fracture or contusion pattern. JOINTS:The acromioclavicular joint shows mild spurring. This creates a mild impingement. Mild spurr ing at the tip of the acromion. The glenohumeral joint shows minimal fluid. TENDONS: Supraspinatus: Mild edema. No focal tear. Infraspinatus: Mild edema. No focal tear. Subscapularis: Unremarkable. Teres Minor: Unremarkable. Biceps and [place]: Unremarkable. MUSCLES: Unremarkable. GLENOID LABRUM: Unremarkable on this noncontrast examination. SOFT TISSUES: Unremarkable. OTHER: Subacromial and subdeltoid bursae shows mild edema.. IMPRESSION: Tendinosis of the infraspinatus and supraspinatus tendons. Degenerative changes of the AC joint with mild impingement. DATA REPOSITORY:
== END ==
PROVIDERS: PCP Family Medicine; Visit Provider Student in an Organized Health Care Education/Training Program
DX: M25.512 Pain in left shoulder (principal); M67.814 Other specified disorders of tendon, left shoulder; M19.012 Primary osteoarthritis, left shoulder; M75.42 Impingement syndrome of left shoulder
CPT/HCPCS: 73221

== ENCOUNTER → 2023-06-05 14:01 | Outpatient (BNVA) | payer MEDICARE, SELFPAY | PROVIDERS: PCP Family Medicine; Referring Provider Family Medicine; Visit Provider Student in an Organized Health Care Education/Training Program | DX: M19.012 Primary osteoarthritis, left shoulder (principal); M67.922 Unspecified disorder of synovium and tendon, left upper arm | CPT/HCPCS: 99214 ==

== ENCOUNTER 2023-09-12 11:05 | Outpatient (CLI) | payer MEDICARE, SELFPAY ==
--- NOTE | 2023-09-12 09:15 | DI.RAD_ITS ---
Exam(s) XR KNEE LT 3V AP,LAT,JENNIFER EXAM: XR KNEE LT 3V AP,LAT,JENNIFER CLINICAL HISTORY: LEFT KNEE PAIN. TECHNIQUE: 2D digital imaging was performed. Three views. COMPARISON: No exams were available for comparison FINDINGS: BONES: No acute fracture is present. No bony destructive lesion is seen. JOINTS: Widening of the medial patellofemoral joint and mild lateral patellar subluxation as well as lateral patellar tilt. Is could indicate disruption of the mid medial patellar retinaculum. No join t effusion is seen. Periarticular spurring. Joint spaces are maintained. SOFT TISSUE: Normal. IMPRESSION: Widening of the patellofemoral joint could indicate disruption of the medial patellar retinaculum. DATA REPOSITORY: RADIATION DOSE DELIVERED:
== END 2023-09-12 11:06 | disposition home or self-care (01) ==
LOC: DIORS 11:05
PROVIDERS: PCP Family Medicine; Referring Provider Family Medicine; Visit Provider Student in an Organized Health Care Education/Training Program
DX: M23.92 Unspecified internal derangement of left knee
CPT/HCPCS: 73562; 99213

== ENCOUNTER 2023-10-02 01:11 | Outpatient (CLI) | payer MEDICARE, SELFPAY ==
--- NOTE | 2023-10-02 09:20 | DI.MRI_ITS ---
Exam(s) MR LOWER JOINT LT WO EXAM: MR LOWER JOINT LT WO CLINICAL HISTORY: PAIN,internal derangement lt knee,m23.92. TECHNIQUE: Multiplanar multisequence MRI was performed. COMPARISON: CR XR KNEE LT 3V AP,LAT,JENNIFER from 09/12/2023 FINDINGS: BONES: There is no fracture or contusion pattern. JOINTS: No joint effusion is present. Articular cartilage: Patellofemoral joint: Articular cartilage is unremarkable. Medial femoral tibial joint: Articular cartilage is unremarkable. Lateral femoral tibial joint: Articular cartilage is unremarkable. LIGAMENTS: Anterior Cruciate: Unremarkable. Posterior Cruciate: Unremarkable. Medial Collateral:Surrounding edema but no visible tear. Lateral Collateral ligament complex: Unremarkable. TENDONS: Extensor mechanism: Unremarkable. Medial retinaculum: Unremarkable. Lateral retinaculum: Unremarkable. Popliteus: Unremarkable. MENISCI: The medial meniscus shows irregular high signal in the body and posterior horn. The lateral meniscus shows irregular high signal in the body and posterior horn. the posterior horn appears diminutive. There is a question of a bucket-handle type tear. MUSCLES: Mild edema extending along medial head of the gastrocnemius muscle. SOFT TISSUES: Mild anterior soft tissue edema. Tiny Rowell's cyst. IMPRESSION: Tears of the posterior horn and body of the medial and lateral menisci. Probable bucket-handle type tear of the posterior horn of the lateral meniscus. DATA REPOSITORY:
== END 2023-10-02 01:31 ==
PROVIDERS: PCP Family Medicine; Visit Provider Student in an Organized Health Care Education/Training Program
DX: M23.322 Other meniscus derangements, posterior horn of medial meniscus, left knee (principal)
CPT/HCPCS: 73721

== ENCOUNTER → 2023-10-10 08:54 | Outpatient (BNVA) | payer MEDICARE, SELFPAY | PROVIDERS: PCP Family Medicine; Referring Provider Family Medicine; Visit Provider Student in an Organized Health Care Education/Training Program | DX: S83.242A Other tear of medial meniscus, current injury, left knee, initial encounter (principal); S83.282A Other tear of lateral meniscus, current injury, left knee, initial encounter; S83.002A Unspecified subluxation of left patella, initial encounter; X58.XXXA Exposure to other specified factors, initial encounter; M94.262 Chondromalacia, left knee | CPT/HCPCS: 99214 ==

== ENCOUNTER 2023-11-29 08:59 | Day surgery (SDC) | payer MEDICARE, SELFPAY ==
[2023-11-29] VITALS (26 sets, daily range): BP systolic 117–136; BP diastolic 50–91; PULSE 62–77; RESP 11–18; TEMP 36.3–36.6; O2SAT 93–100; BMI 34.9
--- NOTE | 2023-11-29 07:20 | W.PM.DSUDISC ---
Date of service: 11/29/23 Time of Service: 13:00 Discharge Plan Disposition Patient Disposition: Home Condition: Stable Discharge Details Attending Provider: Rd Torre Primary Care Provider: Colby Butler Home Meds and New Rx's Prescriptions: New naproxen 250 mg tablet 250 - 500 mg PO BID PRN (Reason: moderate pain and swelling) Qty: 40 0RF aspirin 81 mg capsule 81 mg PO DAILY 14 Days Qty: 14 0RF Continued ascorbic acid (vitamin C) 500 mg capsule 500 mg PO DAILY apple cider vinegar 600 mg capsule 450 mg PO DAILY cholecalciferol (vitamin D3) 10 mcg (400 unit) capsule 25 mcg PO .Every other day glucosamine HCl 1,500 mg tablet 1,500 mg PO DAILY Rx Instructions: administer with a meal turmeric root extract 500 mg capsule 1,000 mg PO DAILY omega-3 fatty acids 1,000 mg capsule 1,000 mg PO BID duloxetine 30 mg capsule,delayed release(DR/EC) 30 mg PO DAILY Qty: 90 1RF oxycodone 10 mg tablet 10 mg PO TID MDD 30 mg PRN (Reason: pain) Qty: 84 0RF oxycodone 10 mg tablet 10 mg PO TID MDD 30 mg Qty: 84 0RF oxycodone 10 mg tablet 10 mg PO TID MDD 30 mg Qty: 84 0RF multivitamin Tablet 1 tab PO DAILY sildenafil 50 mg tablet 50 mg PO DAILY PRN (Reason: sexual activity) Qty: 30 6RF Rx Instructions: administer 30 minutes to 4 hours before activity cyanocobalamin (vitamin B-12) [Vitamin B-12] 500 mcg tablet 500 mcg PO DAILY lidocaine 5 % adhesive patch,medicated 1 patch topical DAILY Qty: 15 0RF Rx Instructions: leave on most painful area for up to 12 hrs hydrochlorothiazide 12.5 mg tablet 12.5 mg PO DAILY Qty: 90 3RF Discontinued naproxen sodium [Aleve] 220 mg tablet 220 mg PO Q12H PRN Patient Comments: Tries to take once daily (one tablet) Discharge Instructions Additional Instructions: Surgery: Left knee arthroscopy with partial medial & lateral meniscectomy and lateral release Activity: Weightbearing as tolerated. May use crutches or walker as needed for a few weeks. Gently advance range of motion as comfort allows. No knee brace or crutches needed as soon as comfortable. Recommend avoiding sports, pivoting, and squatting for 2-3 months. A physical therapy prescription will be sent electronically to start in about 3 weeks. Prescriptions: Aspirin 81 mg take 1 daily to prevent a blood clot for 14 days, starting tomorrow Naproxen 250 mg take 1-2 every 12 hours with a meal as needed for moderate pain You may use [id number]-[id number] Tylenol (acetaminophen) as needed for mild pain. These pain medications may be taken all at once or in different combinations as needed. Also, recommend Colace (docusate) as a stool softener as surgery and pain medicine cause constipation. You may try [id number]-crm-wyhvgka diphenhydramine (Benadryl) 25-50 mg nightly as a sleep aid Dressings: Leave dressing in place for 3 days. May then remove and leave open to air or cover incisions with Band-Aids. Leave the sticky Steri-Strips in place until they fall off or remove them after you shower. May shower after 5 days. Follow-up: 10-[address] Torre You may take off the leg compression stockings this evening at home. You may also leave them on a few days longer if you have a history of leg swelling or edema. Let us know right away if you develop any redness, drainage, fevers, chest pain, or trouble breathing. Do not drink alcohol or drive for at least 24 hours after anesthesia. Please call the office during business hours with any questions or concerns. Stand Alone Forms: Anesthesia Discharge Inst[facility] Seymour Bhatia ([facility]) Discharge Orders Discharge Orders: Discharge Order (Routine); Ordered 11/29/23 Ordered By: Yuliana De Luna DS: Diagnosis Discharge Diagnosis (1) Chondromalacia of left knee: Status: Acute (2) Acute lateral meniscus tear of left knee: Status: Acute (3) Acute medial meniscus tear of left knee: Status: Acute (4) Subluxation of left patella: Status: Acute
--- NOTE | 2023-11-29 09:44 | W.ANESPRE ---
General Info Date of Service Date Performed: 11/29/23 Height: 5 ft 8 in Weight: 104.3 kg Body Mass Index (BMI): 34.9 Surgical Procedure: Operation Date: 11/29/23 11:25 Proposed Procedure Side Surgeon p Knee Arthroscopy w/Partial Medial & Lateral Meniscectomy, Lateral Release Left Rd Torre MD Meds Allergies and Home Medications Allergies Allergy/AdvReac Type Severity Reaction Status Date / Time losartan Allergy Severe angioedema Verified 11/29/23 09:10 tramadol Allergy Severe rash Verified 11/29/23 09:10 gluten Allergy Intermediate Rash Verified 11/29/23 09:10 amitriptyline AdvReac Intermediate sedation Verified 11/29/23 09:10 lisinopril AdvReac Mild Cough Verified 11/29/23 09:10 ether AdvReac Nausea Verified 11/29/23 09:10 flu vaccine AdvReac Intermediate Other (See Uncoded 11/29/23 09:10 Comment) lactose intol AdvReac Intermediate vomiting, Uncoded 11/29/23 09:10 diarrhea Home Medication ?Medication ?Instructions ?Recorded ascorbic acid (vitamin C) 500 mg 500 mg PO DAILY 04/23/20 capsule multivitamin 1 tab PO DAILY 09/30/21 sildenafil 50 mg tablet 50 mg PO DAILY PRN sexual activity 01/01/23 #30 tabs cyanocobalamin (vitamin B-12) 500 500 mcg PO DAILY 03/13/23 mcg tablet (Vitamin B-12) lidocaine 5 % topical patch 1 patch topical DAILY #15 ea 06/05/23 naproxen sodium 220 mg tablet 220 mg PO Q12H PRN 06/05/23 (Aleve) hydrochlorothiazide 12.5 mg tablet 12.5 mg PO DAILY #90 tabs 06/25/23 apple cider vinegar 600 mg capsule 450 mg PO DAILY 11/19/23 cholecalciferol (vitamin D3) 10 25 mcg PO .Every other day 11/19/23 mcg (400 unit) capsule duloxetine 30 mg capsule,delayed 30 mg PO DAILY #90 caps 11/19/23 release glucosamine HCl 1,500 mg tablet 1,500 mg PO DAILY 11/19/23 omega-3 fatty acids 1,000 mg 1,000 mg PO BID 11/19/23 capsule oxycodone 10 mg tablet 10 mg PO TID #84 tabs 11/19/23 oxycodone 10 mg tablet 10 mg PO TID #84 tabs 11/19/23 oxycodone 10 mg tablet 10 mg PO TID PRN pain #84 tabs 11/19/23 turmeric root extract 500 mg 1,000 mg PO DAILY 11/19/23 capsule Current Visit Medications: Current Medications Generic Name Dose Route Start Last Admin Trade Name Freq PRN Reason Stop Dose Admin Ringer's Solution 1,000 mls @ 30 mls/hr 11/29/23 06:00 IV 12/28/23 23:59 INFUSION THU Cefazolin Sodium/Dextrose 2 gm in 50 mls @ 100 mls/hr 11/29/23 06:00 Ancef Duplex IVPB 11/29/23 16:00 PREOP THU Tranexamic Acid/Sodium Chloride 1,000 mg in 100 mls @ 600 mls/hr 11/29/23 06:00 IVPB 11/29/23 16:00 PREOP THU IV Miscellaneous Supplies 1 each 11/29/23 06:00 Iv Access IV 12/28/23 23:59 DIRECTED THU Oxycodone HCl 0 mg 11/29/23 07:16 Oxycodone 5 Mg Tab PO 12/29/23 07:15 Q3H PRN PRN Pain Sodium Chloride 0 ml 11/29/23 06:00 Normal Saline Flush 10 Ml Syr IV 12/28/23 23:59 PRN PRN Sodium Chloride 0 ml 11/29/23 06:00 Normal Saline 10 Ml Vial IJ 12/28/23 23:59 DIRECTED PRN Sterile Water 0 ml 11/29/23 06:00 Water,Injection,Sterile 10 Ml Vial IJ 12/28/23 23:59 DIRECTED PRN PFSH Active Problems Active Problems: Problem Status Onset Code Chondromalacia of left knee Acute M94.262 Subluxation of left patella Acute S83.002A Acute lateral meniscus tear of left knee Acute S83.282A Acute medial meniscus tear of left knee Acute S83.242A Internal derangement of left knee Acute 08/23/23 M23.92 Tendinopathy of left biceps tendon Acute M67.922 Arthritis of left acromioclavicular joint Acute M19.012 Left rotator cuff tear Acute M75.102 Left shoulder pain Acute M25.512 Opioid use Acute F11.90 Chondromalacia of right shoulder Acute M94.211 SLAP lesion of right shoulder Acute S43.431A Rotator cuff tear, right Acute M75.101 Seborrheic keratoses Acute 10/02/22 L82.1 Depression Chronic F32.A Postoperative abdominal pain Acute R10.9, G89.18 Skin tag Acute L91.8 Borderline hyperlipidemia Acute E78.5 Pigmented skin lesion Acute L81.9 Macular pigment deposit Acute H35.52 Impaired glucose tolerance Acute R73.02 Erectile dysfunction Acute N52.9 Essential hypertension Acute I10 Abnormal findings on diagnostic imaging of lung Acute 06/02/12 R91.8 Obstruction of urethra Acute 12/13/12 N36.8 Unilateral inguinal hernia Resolved 12/13/10 K40.90 Complex regional pain syndrome affecting both upper arms Chronic G90.513 Vitamin D deficiency Chronic 04/09/14 E55.9 Trochanteric bursitis, left hip Resolved 09/17/17 M70.62 Sciatica Chronic 02/12/95 M54.30 Other chronic pain Chronic 03/15/07 G89.29 Obesity (BMI 30.0-34.9) Chronic 11/13/11 E66.9 Neoplasm of unspecified nature of bone, soft tissue, and skin Resolved 02/09/16 D49.2 Neck pain Chronic 04/10/16 M54.2 Lumbago Chronic 02/12/95 M54.5 Former smoker Chronic 02/09/16 Z87.891 Chronic left-sided low back pain with left-sided sciatica Chronic 02/12/95 M54.42, G89.29 Borderline high blood pressure Chronic 07/24/16 R03.0 Adjustment disorder with depressed mood Resolved 01/31/16 F43.21 Recurrent inguinal hernia Chronic K40.91 Medical History Medical History Actinic keratoses Tx of cryotherapy 10/02/2022 - Dr Les Nicole MD @ [facility] [place] Right inguinal hernia s/p repair Medical History Comments:: Pt. states he had a rx to ether. Pt. 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 Dr Forman, [facility] urethrotomy (07/03/12) 4 cm stricture, Dr Paz Total replacement of hip HIP reconstruction for diane-renay perthes. Pt. states there is no metal in there Repair of inguinal hernia (05/01/12) DR KEVIN- [facility] repair x2 (open then laparoscopic) Hernia repair with Dr kevin 07/03/2012 Colonoscopy - MAC (02/29/16) Biopsy, Soft Tissue (02/09/16) R lower lip Dr Rogers Tobacco Smoking/Tobacco Use Status: Former Tobacco Use Passive smoking exposure: No Alcohol Alcohol Intake: current Alcohol intake frequency: a few times a month Substance Use Substance use: Daily Substance use type: marijuana and opiates Details: alcohol: t-35. Marijuana: t-1, smoking. Oxycodone: daily Vital Signs and Lab Results Vital Signs Most Recent Vital Signs in EMR: Most Recent Vital Signs Temp Pulse Resp BP Pulse Ox 36.6 C 68 16 136/79 96 11/29/23 09:16 11/29/23 09:16 11/29/23 09:16 11/29/23 09:16 11/29/23 09:16 Lab Results Blood Type / Crossmatch: No Data to Display Complete Blood Count: No Data to Display Complete Metabolic Panel: No Data to Display Liver Function Panel: No Data to Display Coagulation Panel: No Data to Display Cardiac Panel: No Data to Display Arterial Blood Gas: No Data to Display Venous Blood Gas: No Data to Display Pancreas Panel: No Data to Display Thyroid Panel: No Data to Display Infectious Disease: No Data to Display Blood Cultures: No Data to Display Toxicology Panel: No Data to Display Anesthesia Assessment and Plan Anesthesia History Personal History: No History of Anesthesia Complications Family History: No Family History of Anesthesia Complications Exercise Tolerance Exercise Tolerance: Metabolic Equivalents>4 Pertinent Negatives Pertinent Negatives: No Major Cardiovascular Symptoms or Complaints and No Major Pulmonary Symptoms or Complaints Cardiac & Pulmonary Exam Cardiac Exam: Normal S1/S2 Heart Sounds Pulmonary Exam: Clear Bilateral Breath Sounds Implantable Cardiac Device Does patient have a Pacemaker or an ICD?: No Airway Exam Known Difficult Airway: No Mallampati Class: 2 Mouth Opening: Normal (> 3cm) Thyromental Distance: Greater than 3 cm Neck Range of Motion: Full ROM Neck Circumference: Normal Teeth Condition: Normal Dentition ASA Classification ASA Score: ASA 2 Emergency Case?: No NPO Status NPO Status: NPO Clears >2 hours, Solids >8 hours Anesthesia Plan Resuscitation Status: Full Code Anesthesia Technique: General Anesthesia Airway Planned: Endotracheal Tube Monitors Used: Standard Monitors Preoperative Comments:: Prior successful LMA 5, patient declines nerve block, CRPS/chronic pain daily oxycodone. Plan GA/ETT due to GERD symptoms.
[2023-11-29] MEDS: Lactated Ringers 1,000 ML 30 ML IV (10:51)
[2023-11-29] MEDS: ceFAZolin 2 GM/50 ML BAG IVPB (11:34)
[2023-11-29] MEDS: TRANEXAMIC ACID/SOD. CHL. 1,000 MG/100 ML BAG 600 MG IVPB (11:45)
[2023-11-29] MEDS: EPINEPHrine 10 MG/10 ML ML (12:13)
[2023-11-29] MEDS: Bupivacaine 0.25% Pres-Free W/EPI 30 ML VIAL (12:13)
--- NOTE | 2023-11-29 12:45 | W.PM.OP ---
Date of service: 11/29/23 Time of Service: 11:30 Operative Note Operative Note DATE OF PROCEDURE: 11/29/23 PRE-OP DIAGNOSIS: Left knee 1. Medial meniscus tear 2. Lateral meniscus tear 3. Lateral patellofemoral compression syndrome POST-OP DIAGNOSIS: same PROCEDURE: Left knee 1. Partial medial & lateral meniscectomy, CPT #87632 2. Lateral retinacular release, CPT # 01608 SURGEON: Rd Torre HOOF TRIMMER: None None ANESTHESIA TYPE: Local By Surgeon and General LMA/ETT Refer to Anesthesia Record ESTIMATED BLOOD LOSS: 2 PATHOLOGY: none sent TOURNIQUET TIME: 0 COMPLICATIONS: None Patient was transported to: PACU Patient's condition: stable Indications: Please see complete medical record for details. Findings: Exam under anesthesia: Full range of motion, no instability, moderate lateral retinacular tightness. Arthroscopic findings: Mild to moderate generalized patellofemoral, medial, and lateral chondromalacia. Multiple meniscal and cartilaginous loose bodies. Large degenerative?appearing posterior horn and body medial meniscus tear. Also large posterior horn body lateral meniscus tear. Intact ACL. Procedure Description: In the operating room, general anesthesia was induced. The patient was positioned supine on the operating room table. All bony prominences were well-padded. Preoperative antibiotics were administered. The knee was prepped and draped in the usual sterile fashion. The correct patient, procedure, and side of the procedure were all verified prior to incision. Exam under anesthesia was performed. 30 cc of 0.25 bupivacaine containing epinephrine was infiltrated about the planned anteromedial and anterolateral knee arthroscopy portals as well as along the medial and lateral joint lines and especially about the lateral patellar retinaculum. The portals were established and a complete diagnostic arthroscopy was performed with relevant findings detailed above. Mechanical shaver was used to remove some inflamed abundant synovium from the suprapatellar and anterior intercondylar spaces as well as remove multiple small meniscal and chondral loose bodies. Using a combination of hand instruments including meniscal biters and a power shaver and working through the anteromedial and anterolateral portals first the medial and then the lateral meniscus was debrided of all torn tissue to a stable margin. Care was taken to preserve as much meniscus tissue was possible although the tears were large involved majority thickness of the posterior horns and moderate thickness at the bodies. The meniscal remnants were stable. The curved radiofrequency ablator was then used in knee extension working through the anterolateral portal proximally to release carefully layer by layer of the lateral patellar retinaculum with notable release and increased medial mobility of the patella. Hemostasis was excellent. The knee was copiously irrigated with arthroscopic fluid until there was a clear effluent before being drained of all fluid. The anteromedial and anterolateral portals were closed in 3-0 Monocryl in a buried interrupted fashion. Mastisol, Steri-Strips, and 4 x 4 gauze were applied over the incisions. The knee was then wrapped gently with an ANNALEE comressive bandage. The patient awoke from anesthesia without complication and was transferred to the recovery room in a stable condition.
--- NOTE | 2023-11-29 13:06 | W.ANESPOSTOP ---
Postoperative Evaluation Date, Time and Location Date Performed: 11/29/23 Time Performed: 13:06 Patient Location: PACU Vital Signs Most Recent Imported Vital Signs: Most Recent Vital Signs Temp Pulse Resp BP Pulse Ox 36.4 C L 63 14 119/50 L 93 11/29/23 12:49 11/29/23 12:52 11/29/23 12:52 11/29/23 12:52 11/29/23 12:52 Pain Score Most Recent Pain Score: Most Recent Pain Score Pain Level 9 11/29/23 12:54 Assessment Mental Status: Awake (Alert & Oriented to Patient Baseline) Airway and Respiratory Function: Patent airway with normal (patient baseline) respiratory exam Cardiovascular Function: Hemodynamically Stable Hydration Status: Adequately Hydrated Nausea & Vomiting: No Nausea or Vomiting Pain: Pain is Moderate or Severe Postoperative Pain Management: Pain being addressed with medication Peripheral Nerve Block: Patient did not receive a nerve block
[2023-11-29] MEDS: fentaNYL 100 MCG/2 ML VIAL IVP (13:08)
[2023-11-29] MEDS: oxyCODONE 5 MG TAB PO (14:06)
== END 2023-11-29 15:01 | disposition home or self-care (01) ==
LOC: SUR 08:59
PROVIDERS: PCP Family Medicine; Visit Provider Student in an Organized Health Care Education/Training Program
PROC: (CPT 29870; principal; 2023-11-29 11:15)
DX: M94.262 Chondromalacia, left knee (principal); M23.252 Derangement of posterior horn of lateral meniscus due to old tear or injury, left knee; M23.222 Derangement of posterior horn of medial meniscus due to old tear or injury, left knee; M23.42 Loose body in knee, left knee
CPT/HCPCS: 29873; 29880; J0690; J1100; J1171; J2003; J2371; J2405; J2704; J3010

== ENCOUNTER → 2023-12-12 13:09 | Outpatient (BNVA) | payer MEDICARE, SELFPAY | PROVIDERS: PCP Family Medicine; Visit Provider Student in an Organized Health Care Education/Training Program | DX: Z47.89 Encounter for other orthopedic aftercare (principal) | CPT/HCPCS: 99024 ==

== ENCOUNTER → 2024-01-30 13:29 | Outpatient (BNVA) | payer MEDICARE, SELFPAY | PROVIDERS: PCP Family Medicine; Referring Provider Family Medicine; Visit Provider Student in an Organized Health Care Education/Training Program | DX: Z47.89 Encounter for other orthopedic aftercare (principal); M25.562 Pain in left knee | CPT/HCPCS: 99024 ==

== ENCOUNTER 2024-04-03 15:22 | Outpatient (CLI) | payer MEDICARE, SELFPAY ==
--- NOTE | 2024-04-03 11:00 | DI.RAD_ITS ---
Exam(s) XR HIP LT COMPLETE AP PELVIS EXAM: XR HIP LT COMPLETE AP PELVIS CLINICAL HISTORY: hip pain. TECHNIQUE: 2D digital imaging was performed of the left hip. Two views were obtained. AP pelvis an d lateral left hip views were obtained. FINDINGS: BONES: No acute fracture is present. No bony destructive lesion is seen. There is a stable deformity of the left femoral head. This is unchanged. This may be congenital, reflect a developmental dyspla lara of the hip, sequelae slipped capital epiphysis or trauma. JOINTS: No dislocation present. Joint space narrowing is seen in the left hip. SOFT TISSUE: Normal. 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 DATA REPOSITORY: RADIATION DOSE DELIVERED:
== END 2024-04-03 15:23 | disposition home or self-care (01) ==
LOC: DIORS 15:23
PROVIDERS: PCP Family Medicine; Referring Provider Family Medicine; Visit Provider Student in an Organized Health Care Education/Training Program
DX: M16.12 Unilateral primary osteoarthritis, left hip
CPT/HCPCS: 99214; 73502

== ENCOUNTER 2024-04-08 01:30 | Outpatient (CLI) | payer MEDICARE, SELFPAY ==
--- NOTE | 2024-04-08 06:45 | DI.CT_ITS ---
Exam(s) CT LOWER EXTREMITY LT WO EXAM: CT LOWER EXTREMITY LT WO in is free CLINICAL HISTORY: PAIN, SURGICAL PLANNING,oa lt hip, m16.12. TECHNIQUE: Imaging Protocol: Axial computed tomography images with coronal and sagittal reformatted images were created and reviewed. CONTRAST MATERIAL: None COMPARISON: CR XR HIP LT COMPLETE AP PELVIS from 04/03/2024 FINDINGS: Bones: There is no evidence of fracture or dislocation. No cellulitic or osteomyelitic changes are identified. No lytic or sclerotic lesions are identified. Joints: There is severe narrowing of the hip joint space medially and inferior with prominent endpla te osteophytes at the femoral head and inferior acetabulum. The no significant periarticular spurrin g. Soft Tissues: Mildly enlarged prostate. Mild bilateral wall thickening. Mild sigmoid diverticulosi s. Small amount of fat in the left inguinal canal. IMPRESSION: Severe degenerative changes of the left hip. RADIATION DOSE DELIVERED: 452.37mGy.cm Total DLP DATA REPOSITORY: All CT scans at this facility are submitted to the National Radiology Data Registry (NRDR) Dose Index Registry (DIR) with the [employer] ([employer]). RADIATION OPTIMIZATION: All CT scans at this facility use at least one of these dose optimization te chniques: automated exposure control; mA and/or kV adjustment per patient size (includes targeted exa ms where dose is matched to clinical indication); or iterative reconstruction.
== END 2024-04-08 01:50 ==
LOC: DI 01:32
PROVIDERS: PCP Family Medicine; Visit Provider Student in an Organized Health Care Education/Training Program
DX: M16.12 Unilateral primary osteoarthritis, left hip (principal)
CPT/HCPCS: 73700

== ENCOUNTER → 2024-04-15 08:49 | Outpatient (BNVA) | payer MEDICARE, SELFPAY | PROVIDERS: PCP Family Medicine | DX: Z47.89 Encounter for other orthopedic aftercare (principal); M25.562 Pain in left knee | CPT/HCPCS: 99213 ==

== ENCOUNTER 2024-10-16 14:09 | Outpatient (REF) | payer MEDICARE, SELFPAY ==
[2024-10-16 12:06] LABS: Anion Gap 8.5 mmol/L (3-11); BUN 15 mg/dL (7-18); CO2 29.5 mmol/L (21.0-32.0); Calcium 9.0 mg/dL (8.5-10.1); Chloride 102 mmol/L (98-107); Estimated GFR 106.14 (mL/min/1.73m2); Glucose 154 mg/dL (74-106); Potassium 3.6 mmol/L (3.5-5.1); Sodium 140 mmol/L (136-145)
[2024-10-16 12:08] LABS: HCT 46.8 % (40.0-50.0); HGB 16.0 g/dL (13.5-17.5); MCH 30.5 pg (27.0-33.0); MCHC 34.2 % (32.0-36.0); MCV 89 fL (80-95); MPV 9.5 fL (8.0-11.0); Platelet Count 297 10^3/uL (130-400); RBC 5.25 10^6/uL (4.36-5.78); RDW 12.1 % (11.8-14.1); RDW-SD 39.7 fL; WBC 10.78 10^3/uL (4.4-10.8)
== END 2024-10-16 14:10 | disposition home or self-care (01) ==
LOC: LBN 14:09
PROVIDERS: PCP Family Medicine; Visit Provider Student in an Organized Health Care Education/Training Program
DX: Z01.818 Encounter for other preprocedural examination (principal); M16.12 Unilateral primary osteoarthritis, left hip
CPT/HCPCS: 80048; 85027

== ENCOUNTER 2024-10-22 06:05 | Day surgery (SDC) | payer MEDICARE, SELFPAY ==
[2024-10-22] VITALS (46 sets, daily range): BP systolic 113–170; BP diastolic 56–116; PULSE 54–75; RESP 8–21; TEMP 36.1–36.6; O2SAT 90–100; BMI 35.6
[2024-10-22] MEDS: Acetaminophen 500 MG TAB 1000 MG PO (06:48)
[2024-10-22] MEDS: Celecoxib 200 MG CAP 400 MG PO (06:48)
[2024-10-22] MEDS: Lactated Ringers 1,000 ML 80 ML IV (06:49)
--- NOTE | 2024-10-22 07:00 | DI.RAD_ITS ---
Exam(s) XR HIP LT IN OR EXAM: XR HIP LT IN OR CLINICAL HISTORY: left hip oa. TECHNIQUE: 2D and realtime digital imaging was performed. COMPARISON: CR XR HIP LT COMPLETE AP PELVIS from 04/03/2024 FINDINGS: Hard copy images show placement of a left hip prosthesis. The alignment appears satisfactory Please see procedure note for details. Fluoro time: 30seconds RADIATION DOSE DELIVERED: Ka,r=4.03 mGy
--- NOTE | 2024-10-22 07:03 | W.ANESPRE ---
General Info Date of Service Date Performed: 10/22/24 Height: 5 ft 8 in Weight: 106.3 kg Body Mass Index (BMI): 35.6 Surgical Procedure: Operation Date: 10/22/24 07:50 Proposed Procedure Side Surgeon p Hip Total Hip Anterior, ACTIS Left Heath Tamayo MD Meds Allergies and Home Medications Allergies Allergy/AdvReac Type Severity Reaction Status Date / Time losartan Allergy Severe angioedema Verified 10/22/24 06:34 tramadol Allergy Severe rash Verified 10/22/24 06:34 gluten Allergy Intermediate Rash Verified 10/22/24 06:34 amitriptyline AdvReac Intermediate sedation Verified 10/22/24 06:34 lactose AdvReac Intermediate Other (See Verified 10/22/24 06:34 Comment) lisinopril AdvReac Mild Cough Verified 10/22/24 06:34 ether AdvReac Nausea Verified 10/22/24 06:34 Influenza Virus Vaccines AdvReac Other (See Verified 10/22/24 06:34 Comment) Home Medication ?Medication ?Instructions ?Recorded ascorbic acid (vitamin C) 500 mg 500 mg PO DAILY 04/23/20 capsule multivitamin 1 tab PO DAILY 09/30/21 cyanocobalamin (vitamin B-12) 500 500 mcg PO DAILY 03/13/23 mcg tablet (Vitamin B-12) lidocaine 5 % topical patch 1 patch topical DAILY #15 ea 06/05/23 apple cider vinegar 600 mg capsule 450 mg PO DAILY 11/19/23 cholecalciferol (vitamin D3) 10 25 mcg PO .Every other day 11/19/23 mcg (400 unit) capsule glucosamine HCl 1,500 mg tablet 1,500 mg PO DAILY 11/19/23 omega-3 fatty acids 1,000 mg 1,000 mg PO BID 11/19/23 capsule turmeric root extract 500 mg 1,000 mg PO DAILY 11/19/23 capsule hydrochlorothiazide 12.5 mg tablet 12.5 mg PO DAILY #90 tabs 06/20/24 sildenafil 50 mg tablet 50 mg PO DAILY PRN sexual activity 09/15/24 #30 tabs fiber 1 cap PO DAILY 10/06/24 oxycodone 10 mg tablet 10 mg PO TID PRN pain #84 tabs 10/10/24 oxycodone 10 mg tablet 10 mg PO TID PRN pain #84 tabs 10/10/24 [id number] 250 mg-dha 90 1 cap PO DAILY 10/16/24 mg-epa 160 [id number]-[id number] capsule (Ocuvite Adult 50 Plus) oxycodone 5 mg tablet 5 mg PO DIRECTED 10/21/24 Current Visit Medications: Current Medications Generic Name Dose Route Start Last Admin Trade Name Willie PRN Reason Stop Dose Admin Acetaminophen 1,000 mg 10/22/24 06:00 10/22/24 06:48 Acetaminophen 500 Mg Tab PO 10/22/24 23:59 1,000 mg PREOP THU Administration Celecoxib 400 mg 10/22/24 06:00 10/22/24 06:48 Celecoxib 200 Mg Cap PO 10/22/24 23:59 400 mg PREOP THU Administration Ringer's Solution 1,000 mls @ 80 mls/hr 10/22/24 06:00 10/22/24 06:49 IV 10/22/24 23:59 80 mls/hr INFUSION THU Administration Cefazolin Sodium/Dextrose 2 gm in 50 mls @ 100 mls/hr 10/22/24 06:00 Ancef Duplex IVPB 10/22/24 23:59 PREOP THU Tranexamic Acid/Sodium Chloride 1,000 mg in 100 mls @ 600 mls/hr 10/22/24 06:00 IVPB 10/22/24 23:59 PREOP THU IV Miscellaneous Supplies 1 each 10/22/24 06:00 Iv Access IV 10/22/24 23:59 DIRECTED THU Oxycodone HCl 10 mg 10/22/24 06:00 Oxycodone-Cr 10 Mg Tabcr PO 10/22/24 23:59 PREOP THU Sodium Chloride 0 ml 10/22/24 06:00 Normal Saline Flush 10 Ml Syr IV 10/22/24 23:59 PRN PRN Sodium Chloride 0 ml 10/22/24 06:00 Normal Saline 10 Ml Vial IJ 10/22/24 23:59 DIRECTED PRN Sterile Water 0 ml 10/22/24 06:00 Water,Injection,Sterile 10 Ml Vial IJ 10/22/24 23:59 DIRECTED PRN PFSH Active Problems Active Problems: Problem Status Onset Code Osteoarthritis of left hip Acute M16.12 Chondromalacia of left knee Acute M94.262 Subluxation of left patella Acute S83.002A Acute lateral meniscus tear of left knee Acute S83.282A Acute medial meniscus tear of left knee Acute S83.242A Internal derangement of left knee Acute 08/23/23 M23.92 Tendinopathy of left biceps tendon Acute M67.922 Arthritis of left acromioclavicular joint Acute M19.012 Left rotator cuff tear Acute M75.102 Left shoulder pain Acute M25.512 Opioid use Acute F11.90 Chondromalacia of right shoulder Acute M94.211 SLAP lesion of right shoulder Acute S43.431A Rotator cuff tear, right Acute M75.101 Seborrheic keratoses Acute 10/02/22 L82.1 Depression Chronic F32.A Postoperative abdominal pain Acute R10.9, G89.18 Skin tag Acute L91.8 Borderline hyperlipidemia Acute E78.5 Pigmented skin lesion Acute L81.9 Macular pigment deposit Acute H35.52 Impaired glucose tolerance Acute R73.02 Erectile dysfunction Acute N52.9 Essential hypertension Acute I10 Abnormal findings on diagnostic imaging of lung Acute 06/02/12 R91.8 Obstruction of urethra Acute 12/13/12 N36.8 Unilateral inguinal hernia Resolved 12/13/10 K40.90 Complex regional pain syndrome affecting both upper arms Chronic G90.513 Vitamin D deficiency Chronic 04/09/14 E55.9 Trochanteric bursitis, left hip Resolved 09/17/17 M70.62 Sciatica Chronic 02/12/95 M54.30 Other chronic pain Chronic 03/15/07 G89.29 Obesity (BMI 30.0-34.9) Chronic 11/13/11 E66.9 Neoplasm of unspecified nature of bone, soft tissue, and skin Resolved 02/09/16 D49.2 Neck pain Chronic 04/10/16 M54.2 Lumbago Chronic 02/12/95 M54.5 Former smoker Chronic 02/09/16 Z87.891 Chronic left-sided low back pain with left-sided sciatica Chronic 02/12/95 M54.42, G89.29 Borderline high blood pressure Chronic 07/24/16 R03.0 Adjustment disorder with depressed mood Resolved 01/31/16 F43.21 Recurrent inguinal hernia Chronic K40.91 Medical History Medical History Actinic keratoses Tx of cryotherapy 10/02/2022 - Dr Les Nicole MD @ [facility] [place] Right inguinal hernia s/p repair Medical History Comments:: Pt. states he had a rx to ether. Pt. 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 Dr Forman, [facility] urethrotomy (07/03/12) 4 cm stricture, Dr Paz Total replacement of hip HIP reconstruction for diane-renay perthes. Pt. states there is no metal in there Repair of inguinal hernia (05/01/12) DR KEVIN- [facility] repair x2 (open then laparoscopic) Hernia repair with Dr kevin 07/03/2012 Colonoscopy - MAC (02/29/16) Biopsy, Soft Tissue (02/09/16) R lower lip Dr Rogers Tobacco Smoking/Tobacco Use Status: Former Tobacco Use Passive smoking exposure: No Alcohol Alcohol Intake: current Alcohol intake frequency: a few times a month Substance Use Substance use: Daily Substance use type: marijuana and opiates Details: alcohol: t-35. Marijuana: t-1, smoking. Oxycodone: daily Vital Signs and Lab Results Vital Signs Most Recent Vital Signs in EMR: Most Recent Vital Signs Temp Pulse Resp BP Pulse Ox 36.6 C 72 17 140/99 H 95 10/22/24 06:22 10/22/24 06:22 10/22/24 06:22 10/22/24 06:22 10/22/24 06:22 Lab Results Complete Blood Count: WBC, (4.4-10.8) 10.78 10^3/uL 10/16/24, 09:45 RBC, (4.36-5.78) 5.25 10^6/uL 10/16/24, 09:45 Hgb, (13.5-17.5) 16.0 g/dL 10/16/24, 09:45 Hct, (40.0-50.0) 46.8 % 10/16/24, 09:45 Plt Count, (130-400) 297 10^3/uL 10/16/24, 09:45 Complete Metabolic Panel: Sodium, (136-145) 140 mmol/L 10/16/24, 09:45 Potassium, (3.5-5.1) 3.6 mmol/L 10/16/24, 09:45 Chloride, (98-107) 102 mmol/L 10/16/24, 09:45 Carbon Dioxide, (21.0-32.0) 29.5 mmol/L 10/16/24, 09:45 BUN, (7-18) 15 mg/dL 10/16/24, 09:45 Creatinine, (0.70-1.30) 0.7 mg/dL 10/16/24, 09:45 Est GFR (CKD-EPI 2020), (mL/min/1.73m2) 106.14 10/16/24, 09:45 Calcium, (8.5-10.1) 9.0 mg/dL 10/16/24, 09:45 Glucose, (74-106) 154 mg/dL H 10/16/24, 09:45 Anesthesia Assessment and Plan Anesthesia History Personal History: Delayed Emergence Family History: No Family History of Anesthesia Complications Exercise Tolerance Exercise Tolerance: Metabolic Equivalents>4 Pertinent Negatives Pertinent Negatives: No Symptoms of GERD, No Major Cardiovascular Symptoms or Complaints and No Major Pulmonary Symptoms or Complaints Cardiac & Pulmonary Exam Cardiac Exam: Normal S1/S2 Heart Sounds Pulmonary Exam: Clear Bilateral Breath Sounds Implantable Cardiac Device Does patient have a Pacemaker or an ICD?: No Airway Exam Known Difficult Airway: No Mallampati Class: 2 Mouth Opening: Normal (> 3cm) Thyromental Distance: Greater than 3 cm Neck Range of Motion: Full ROM Neck Circumference: Normal Teeth Condition: Normal Dentition ASA Classification ASA Score: ASA 2 Emergency Case?: No NPO Status NPO Status: NPO Clears >2 hours, Solids >8 hours Anesthesia Plan Resuscitation Status: Full Code Anesthesia Technique: General Anesthesia Airway Planned: Endotracheal Tube Monitors Used: Standard Monitors
--- NOTE | 2024-10-22 07:09 | W.PM.DSUDISC ---
Date of service: 10/22/24 Discharge Plan Disposition Patient Disposition: Home Condition: Good Discharge Details Reason For Visit: L THR Attending Provider: Heath Tamayo Primary Care Provider: Colby Butler [place] Meds and New Rx's Prescriptions: New celecoxib 200 mg capsule 200 mg PO BID Qty: 60 0RF aspirin 81 mg tablet,delayed release (DR/EC) 81 mg PO BID Qty: 60 0RF acetaminophen 500 mg tablet 1,000 mg PO TID Qty: 90 3RF pantoprazole 40 mg tablet,delayed release (DR/EC) 40 mg PO DAILY Qty: 14 0RF dexamethasone 4 mg tablet 4 mg PO DAILY Qty: 2 0RF docusate sodium 100 mg capsule 100 mg PO BID PRNQty: 28 0RF Continued ascorbic acid (vitamin C) 500 mg capsule 500 mg PO DAILY apple cider vinegar 600 mg capsule 450 mg PO DAILY cholecalciferol (vitamin D3) 10 mcg (400 unit) capsule 25 mcg PO .Every other day glucosamine HCl 1,500 mg tablet 1,500 mg PO DAILY Rx Instructions: administer with a meal turmeric root extract 500 mg capsule 1,000 mg PO DAILY omega-3 fatty acids 1,000 mg capsule 1,000 mg PO BID fiber Capsule 1 cap PO DAILY oxycodone 10 mg tablet 10 mg PO TID MDD 30 mg PRN (Reason: pain) Qty: 84 0RF oxycodone 10 mg tablet 10 mg PO TID MDD 30 mg PRN (Reason: pain) Qty: 84 0RF multivitamin Tablet 1 tab PO DAILY cyanocobalamin (vitamin B-12) [Vitamin B-12] 500 mcg tablet 500 mcg PO DAILY lidocaine 5 % adhesive patch,medicated 1 patch topical DAILY Qty: 15 0RF Rx Instructions: leave on most painful area for up to 12 hrs Ocuvite Adult 50 Plus 250 mg (90 mg-160 mg) capsule 1 cap PO DAILY hydrochlorothiazide 12.5 mg tablet 12.5 mg PO DAILY Qty: 90 3RF sildenafil 50 mg tablet 50 mg PO DAILY PRN (Reason: sexual activity) Qty: 30 6RF Rx Instructions: administer 30 minutes to 4 hours before activity oxycodone 5 mg tablet 5 mg PO DIRECTED Patient Comments: TAKE ONE TABLET BY MOUTH EVERY 8 HOURS NEEDED FOR 10 DAYS; TAKE POST-OP WITH 10MG FOR 10 DAYS Discharge Instructions Additional Instructions: Total Hip Discharge Instructions Activity: The most important activity is to walk. You should try to take short walks a few times a day. You have no restrictions on movement or positioning, but do not try to force what you do. You will find some stiffness and weakness with hip flexion (lifting your knee). Do not try to strengthen this too early, continue to practice walking and stairs and this will come. - Outpatient physical therapy can be helpful to help return you to a normal gait and improve your flexibility and strength. This can start around 2 weeks. For some patients, it?s not necessary. Usually this is determined at the time of discharge or at the first post-operative visit. - You should wear the MEG hose on both legs for 2 weeks. Dressing: Keep the surgical dressing in place for at least one week. After the first week it may be removed and replace with light gauze and tape or nothing. It may get wet after 3 days but avoid soaking the dressing. If it gets wet, just lightly pat dry. It is important to always keep some gauze between skin folds, especially when you are sitting. Spend some time with the wound exposed when you are lying flat as the incision does wrinkle onto itself. Medications: - You should take Tylenol and an anti-inflammatory Celebrex as your primary pain control medications. If the Celebrex is too expensive or not covered, please call the office for another alternative (Advil/Ibuprofen or Naproxen/Aleve). - You will take your stronger pain medication Oxycodone as directed by your PCP for breakthrough pain. - You have also been prescribed a stomach acid reduction agent Pantoprozole to help reduce stomach acid and reflux. - You have also been prescribed Decadron to help with post-operative nausea and pain. You will take this for two days starting tomorrow. - You will be taking Aspirin 81mg twice a day for DVT prevention unless instructed otherwise. - If you have constipation you should take Colace or Miralax (both [id number]). It takes most people 3-4 days to have a bowel movement. Follow-up: 2 weeks If you have any acute concerns or questions, please do not hesitate to contact the office at [phone]. You may contact Dr. Tamayo with any questions after hours through the hospital at [phone] or on his cell phone at [phone]. Stand Alone Forms: Anesthesia Discharge Inst., [facility] B[facility]ia ([facility]) Referrals: Heath Tamayo MD [ [facility] STAFF PHYSICIAN, Orthopaedic Surgical] - 11/06/24 9:00 am Equipment/Supplies: Walker Activity:: Activity as Tolerated Shower/Bathe:: 72 hours Diet:: As Tolerated Discharge Orders Discharge Orders: Discharge Order (Routine); Ordered 10/22/24 Ordered By: Reinier Yao DS: Diagnosis Discharge Diagnosis (1) Osteoarthritis of left hip: Status: Acute
[2024-10-22] MEDS: ceFAZolin 2 GM/50 ML BAG IVPB (07:37)
--- NOTE | 2024-10-22 07:41 | ROE_ITS ---
Operative Note Operative Note PRE-OP DIAGNOSIS: Left Hip Osteoarthritis POST-OP DIAGNOSIS: same PROCEDURE: Left Anterior Total Hip Arthroplasty with Intraoperative Navigation SURGEON: Heath Tamayo ENGINEERING OPERATIONS LEADER: Reinier Yao ANESTHESIA TYPE: General LMA/ETT Refer to Anesthesia Record ESTIMATED BLOOD LOSS: 300 PATHOLOGY: none sent TOURNIQUET TIME: 0 COMPLICATIONS: None Patient was transported to: PACU Patient's condition: stable Implants: 1. Depuy Republic Acetabular Component, 58mm 2. Depuy Acetabular Liner, 40o60kl 3. Depuy Actis Standard Collared Femoral Stem, Size 6 4. 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 Delgado has exhausted nonoperative methods and was having significant limitations in daily function and desired better function and less pain. I discussed the technical details of a hip replacement. I explained the risks of the procedure to include, but not limited to, bleeding, infection, pain, stiffness, fracture, damage to nerves and vessels, damage to muscles and tendons, loosening, instability, leg length inequality, need for repeat procedure, blood clot and cardiopulmonary demise. Despite these risks, he elected to proceed. Findings: There was significant signs of arthritis throughout the hip with notable deformity of the femoral head and abudant synovitis. Procedure Description: Delgado was greeted in the preoperative holding area where the correct side was identified and marked. The consent was reviewed with the patient and signed. The history and physical was updated. All questions were answered. He was taken back to the operating room. A general anesthestic was then administered. The feet were wrapped with cast padding and Coban and then placed into the boot liners and then into the boots. Care was taken to protect the skin and make sure the heels were fully down and the boots were stable. The patient was then positioned onto the HANA table. Both legs were held in a neutral position. SCDs were applied. The patient was then slid down onto a peroneal post. Prophylactic antibiotics in the form of Cefazolin were administered. 1g of Tranxemic Acid was given intravenously within 30 minutes of incision. The left leg was then prepped with Chloraprep and draped in a standard fashion. A second prep with Chloraprep was performed prior to placement of a shower-curtain type drape with Iodine impregnated skin protection. A timeout to confirm correct identity, side and site, procedure, allergies, anesthesia, and medical concerns was performed. An obliquely oriented incision was made starting lateral to the ASIS and running distal over the Tensor Fascia Yuliana (TFL) muscle belly toward the fibular head, approximately 10cm. The skin and soft tissue was dissected sharply, through Thierry?s fascia, and to the fascia of the TFL. With the fascia and superior border of the IT band identified, the fascia was incised with a new knife just above any perforators from the IT band. The TFL muscle belly was bluntly dissected away from the fascia and moved laterally. The fat between TFL and rectus was identified to ensure the dissection was not within the TFL. Blunt dissection created space between abductors and the capsule and retractor was placed over the lateral femoral neck. The fibers of the rectus femoris tendon were identified and these were freed from the anterior capsule. A second cobra retractor was placed around the medial femoral neck. The TFL was further ret racted laterally to show the deep fascia. Careful dissection through this layer identified three main crossing vessels of the lateral femoral circumflex. These were cauterized in multiple locations and then cut without any noticeable bleeding. The TFL was further released bluntly from the deep fascia to expose anterior hip capsule and fat The soft tissue orthopaedic retractor was then placed beneath the TFL and against sartorius and medial soft tissues to protect and retract the soft tissues. A T-capsulotomy was then performed starting at the superior lateral acetabulum and moving distally to the intertrochanteric ridge. These capsular flaps were tagged with a No. 1 Vicryl and elevated from within. The capsular flaps were released to the shoulder of the lateral neck and to the lesser trochanter to give excellent visualization of the proximal femur. A neck osteotomy was performed using an oscillating saw based on preoperative templates. This cut started in the shoulder and of the lateral neck and exited medially. The saw was at all times directed medially to avoid injury to the greater trochanter. Gross traction was applied to the leg and the osteotomy opened. The femoral head was removed with a corkscrew, making sure to protect the TFL on its exit. Traction was released after head removal. This was measured on the back table to determine the starting reamer size. Portions of the rectus obscuring visualization were minimally elevated off the superior acetabulum. An anterior retractor was placed over the anterior wall between capsule and labrum and attached to the Gripper retraction system. The femur was rotated to 90 degrees and medial capsule was fully released until the lesser trochanter was palpable and visible; the femur was returned to 30 degrees. A posterior retractor was placed similarly between capsule and labrum. This provided excellent visualization. The contents of the cotyloid fossa were removed with electrocautery and the labrum was removed with a knife. There was a notable floor osteophyte. There was significant chondromalacia of the superior acetabulum. Acetabular reaming began with a 51mm reamer. This first reaming was directed anterior to posterior and medial to get down to the true floor. This was inspected and reamed until the true floor was reached. The anterior retractor was then released and entry and exit was provided by traction on the capsular flaps. I then reamed sequentially up to a 58mm reamer where good fit was obtained. The larger reamers were oriented based on anatomical reference of the anterior and lateral love to ensure proper abduction and anteversion. Positioning and size was confirmed with the fluoroscopy. A 58mm Depuy Republic acetabular component was selected. The acetabulum was reamed around the periphery with the selected acetabular size to prevent a rim fit. The deep tissues were irrigated. The acetabular component was then impacted in a position of about 40-45 degrees of abduction and 15-20 degrees of anteversion, using the patient?s anatomy as the ultimate landmark. Fluoroscopy was used to confirm this. There was excellent patents examiner of the acetabular component and the inserting handle was removed. The acetabular liner, Depuy 46x52ih polyethylene liner, was inserted and lined up with the tines of the acetabular component. There was no soft tissue interposition. The liner was then impacted into position and confirmed to be well-seated. A portion of the fran-articular cocktail was then injected around the acetabulum into the capsule and periosteum. This cocktail consisted of 123mg of Ropivacaine, 0.25mg of Epinephrine, 0.04mg of Clonidine, and 15mg of Ketorolac, diluted to 50cc. The leg was rotated to 120 degrees. Any remaining medial capsule was released until the lesser trochanter was easily palpable. A retractor was placed medially. The lateral capsule was further released into the shoulder to allow access to the greater trochanter. A Trejo retractor was placed over the greater trochanter which allowed the trochanter to flip in front of the capsule for excellent exposure. The leg was brought down into maximal extension and 20 degrees of adduction while ensuring there was no impingement on the acetabulum. Any remnant capsule within the trochanter was released. Piriformis and obturator externis were identified and protected. There was excellent access to the proximal femur. The lateral neck remnant was removed with a rongeur. A blunt canal probe was used to identify the canal and trajectory for later broaching. A box osteotome initiated the broach course. A small curved rasp and a curved curette were used to work laterally. Broaching then began with a starter Actis broach. This was inserted manually around the trochanter and into the canal before mallet blows. The broach was seated to a few millimeters below the cut level based on the neck cut and the preoperative template. Sequential broaching was continued with the CaseReader pneumatic broaching device until a tight fit was obtained with good rotational control of the femur. A trial standard neck was inserted along with a +1.5 trial head. The leg was brought out of extension and adduction and then reduced with traction and internal rotation. The leg was stable anteriorly in a position of 30 degrees of extension and 90 degrees of external rotation. Fluoroscopy was used to ensure there was no fracture and the stem was seated well. Leg lengths were checked with an AP pelvis and pelvic reference points. [employer] navigation system was used to confirm appropriate positioning and leg length and offset. This slightly undercorrected the leg length and offset. Thus, I advanced the broach about 2-3mm and went up to an 8.5mm head. Once content with the desired offset and leg lengths, the leg was brought back into extension, external rotation and adduction. The periosteum and surrounding tissue was injected with remaining portion of the fran-articular cocktail. The proximal femur was irrigated as well as the deep tissues. The Listaruy Actis standard collared stem, size 6, was then manually inserted into the proximal femur making sure to control rotation. It was then malleted into position with light blows, giving breaks to allow bone expansion and decrease risk of fracture. The selected Depuy Altrx Ceramic Head, size 36+8.5mm, was then placed onto the clean and dry trunnion and secured with impaction onto the tapered fit. The leg was brought back out of extension and adduction and reduced with traction and internal rotation. Stability was confirmed with no shuck at 90 degrees of external rotation and 30 degrees of extension. No impingement through range of motion arc. Final x-ray images were obtained with fluoroscopy to confirm adequate positioning and no intraoperative fracture. The deep tissues were thoroughly irrigated with Surgiphor, betadine solution. This was allowed to sit in the wound for 3 minutes before being thoroughly irrigated out with normal saline. The capsule was then reapproximated with the previously placed sutures. The TFL fascia was finally closed with a No. 2 Stratafix, barbed suture. Deep tissues were then reapproximated with 0 Vicryl and a running 2-0 Vicryl. The skin was closed with a running 4-0 Monocryl in a subcuticular fashion. This was reinforced with skin glue. A Mepilex silver dressing was applied. At the end of the case, all counts were correct. Delgado was transferred to the hospital bed without difficulty and suffering no apparent complication. He has a good prognosis. Physical therapy will start today and without restrictions, weight-bearing as tolerated. Aspirin 81mg BID will be used for DVT prophylaxis. Date of Procedure: 10/22/24
[2024-10-22] MEDS: TRANEXAMIC ACID/SOD. CHL. 1,000 MG/100 ML BAG 600 MG IVPB (07:50)
[2024-10-22] MEDS: fentaNYL 100 MCG/2 ML VIAL IVP ×2 (09:52→09:58)
[2024-10-22] MEDS: HYDROmorphone 2 MG/ML SYR IVP ×3 (10:05→10:25)
--- NOTE | 2024-10-22 10:08 | W.ANESPOSTOP ---
Postoperative Evaluation Date, Time and Location Date Performed: 10/22/24 Time Performed: 10:08 Patient Location: PACU Vital Signs Most Recent Imported Vital Signs: Most Recent Vital Signs Temp Pulse Resp BP Pulse Ox 36.3 C L 61 15 152/78 H 95 10/22/24 09:56 10/22/24 10:00 10/22/24 10:00 10/22/24 09:56 10/22/24 10:00 Pain Score Most Recent Pain Score: Most Recent Pain Score Pain Level 3 10/22/24 1008 Assessment Mental Status: Awake (Alert & Oriented to Patient Baseline) Airway and Respiratory Function: Patent airway with normal (patient baseline) respiratory exam Cardiovascular Function: Hemodynamically Stable Hydration Status: Adequately Hydrated Nausea & Vomiting: No Nausea or Vomiting Pain: Pain is tolerable per patient Peripheral Nerve Block: Patient did not receive a nerve block
[2024-10-22] MEDS: oxyCODONE 5 MG TAB PO (10:50)
[2024-10-22] MEDS: oxyCODONE 10 MG TAB PO (11:39)
[2024-10-22] MEDS: Tranexamic Acid 650 MG TAB 1300 MG PO (11:39)
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
== END 2024-10-22 13:27 | disposition home or self-care (01) ==
PROVIDERS: PCP Family Medicine; Visit Provider Student in an Organized Health Care Education/Training Program
PROC: (CPT 27130; principal; 2024-10-22 07:30)
DX: M16.12 Unilateral primary osteoarthritis, left hip (principal)
CPT/HCPCS: 20985; 27130; 97162; 73501; C1776; J0690; J1100; J1171; J2250; J2405; J2704; J3010

== ENCOUNTER 2024-11-06 10:14 | Outpatient (CLI) | payer MEDICARE, SELFPAY ==
--- NOTE | 2024-11-06 08:30 | DI.RAD_ITS ---
Exam(s) XR HIP LT COMPLETE AP PELVIS EXAM: XR HIP LT COMPLETE AP PELVIS INDICATION: 1st post op S/P L XUAN. COMPARISON: CR XR HIP LT COMPLETE AP PELVIS from 04/03/2024 XA XR HIP LT IN OR from 10/22/2024 TECHNIQUE: 2D digital imaging was performed. Two views. FINDINGS: There has been no change in the alignment of the left hip prosthesis. There are no abnormal surrounding bony lucencies. The right hip joint space is maintained. DATA REPOSITORY: RADIATION DOSE DELIVERED:
== END 2024-11-06 10:15 | disposition home or self-care (01) ==
LOC: DIORS 10:14
PROVIDERS: PCP Family Medicine; Visit Provider Physician Assistant
DX: Z47.1 Aftercare following joint replacement surgery (principal); Z96.642 Presence of left artificial hip joint
CPT/HCPCS: 99024; 73502

== ENCOUNTER → 2024-12-04 08:13 | Outpatient (BNVA) | payer MEDICARE, SELFPAY | PROVIDERS: PCP Family Medicine; Referring Provider Family Medicine; Visit Provider Student in an Organized Health Care Education/Training Program | DX: Z47.1 Aftercare following joint replacement surgery (principal); Z96.642 Presence of left artificial hip joint; M94.262 Chondromalacia, left knee | CPT/HCPCS: 99024 ==

== ENCOUNTER → 2025-01-15 08:10 | Outpatient (BNVA) | payer MEDICARE, SELFPAY | PROVIDERS: PCP Family Medicine; Referring Provider Family Medicine; Visit Provider Physician Assistant | DX: Z47.1 Aftercare following joint replacement surgery (principal); Z96.642 Presence of left artificial hip joint | CPT/HCPCS: 99024 ==